=== PATIENT | female | born 2000 | race Caucasian/White ===

== ENCOUNTER 2021-01-24 06:35 | Inpatient (IN) ==
--- NOTE | 2021-01-24 06:46 | Emergency Department Note ---
Impression & Plan SIRS (systemic inflammatory response syndrome), Abdominal pain, Leukocytosis ED Provider Note NAME: ELADIA VEGA AGE: 20 SEX: F : 2000 ARRIVES VIA: Walk-In INFORMANT: Patient ED PROVIDER(S): Austen Mitchell DO CHIEF COMPLAINT: back pain and abdominal pain HPI: Patient is a 20-year-old female who presents to the ER for right lower back pain which started 6 days ago while she was doing a workout. Radiates into her right gluteus and down the back of her right leg and onto the right side of her belly. She feels very lightheaded when she gets up and moves around or get dizzy and vomited. Denies any dysuria, urgency, or frequency. Last menstrual p eriod was about 2 weeks ago. Pain is worse with movement i.e. twisting, turning, and bending. No cough or runny nose. No chest pain or shortness of breath. No other exacerbating or remitting factors. Over the past 3 4 hours she has had pain in the right lower quadrant. This been fairly consistent. She admits to nausea vomiting. She has not been eating or drinking. She is not sexually active and has not been sexually active before. Denies any vaginal bleeding or vaginal discharge. ROS: See above HPI for pertinent positives & negatives. A total of 10 systems r eviewed and were otherwise negative. PAST MEDICAL HISTORY:See Below PAST SURGICAL HISTORY:See Below FAMILY HISTORY:See Below SOCIAL HISTORY:See Below HOME MEDICATIONS:See Below ALLERGIES:See Below VITALS:See Below PHYSICAL EXAMINATION: GENERAL: Sitting up in bed, alert, well appearing, well nourished, no distress, non-toxic EYE EXAM: normal conjunctiva. PERRL and EOM's grossly intact. OROPHARYNX: no exudate, no erythema, lips, buccal mucosa, and tongue normal and mucous membranes are moist NECK: supple, no nuchal rigidity, no adenopathy, non-tender LUNGS: Clear to auscultation. Normal chest wall mechanics HEART: no murmurs, S1 normal and S2 normal ABDOMEN: abdomen soft, non-tender, normo-active bowel sounds, no masses, no rebound or guarding. BACK: Back is symmetrical on inspection and there is no deformity, no midline tenderness, no CVA tenderness. Tenderness over the right SI joint tracking to the right gluteus and down the back of the right leg UPPER EXTREMITIES: upper extremities are grossly normal. LOWER EXTREMITIES: Flexion and extension of the hips, knees, ankles, and EHL 5/5 bilaterally. Gross sensation is intact. DPs are 2/4 bilateral. Patellar and Achilles reflexes are 2/4 bilateral NEURO EXAM: Normal sensorium, cranial nerves II-XII grossly intact, normal speech, no gross weakness of arms, no gross weakness of legs. MEDICAL DECISION MAKING: Patient is a 20-year-old female that presents the ER with what appears to be reproducible back pain/muscle skeletal back pain combination with abdominal pain. IV was established blood work was obtained. She was mildly tachycardic. Labs show leukocytosis of 30,000. No significant anemia. BMP along with LFTs bilirubin and lipase was unremarkable. hCG was negative. UA was clean. Covid was ordered and pending. CT abdomen pelvis showed normal appendix but a moderate amount of free fluid in the pelvis and a left ovarian cyst. Patient is not sexually active. Doubt TOA. Did discuss with [facility] [facility] and Dr. Charmaine Issa was gracious enough to evaluate the patient at bedside. She does not believe that this is [employer] and favors likely intra-abdominal process other than [employer]. Discussed with general surgery who will [place] and they will evaluate the patient. She was given IV Zosyn. She given IV fluids and Toradol. Discussed with the hospitalist Dr. Kizzy Bryan for further evaluation as well. With the persi stent pain, leukocytosis and her current presentation with right lower quadrant abdominal pain do feel it is best at this time to observe her and have her evaluated by general surgery. Observation Status: Indication: abdominal pain Patient with no pertinent family history, was seen first at 0630 hrs and was necessary in order to determine medical stability and avoid unnecessary admission. Upon reevaluation, 6 hours of observation revealed that the patient should be admitted. Disposition date and time 01/24/2021 at 1300 Triage Nursing notes reviewed. Limited review of prior medical records performed Vital Signs: reviewed and remarkable for tachy Differential diagnosis: Differential diagnoses includes but is not limited to gastritis, peptic ulcer disease, GERD, gallbladder disease, pancreatitis, small bowel obstruction, acute coronary syndrome, pericarditis, ischemic bowel, irritable bowel disease, irri table bowel syndrome, appendicitis, diverticulitis, malignancy, hernia, urinary tract infection, torsion, /ectopic (if female), perforation, trauma, infectious. ER treatment provided: See below Diagnostics interpreted by me: ECG: none Cardiac Monitoring: An order was placed for continuous cardiac monitoring. The monitor shows a rate of 105 with sinus rhythm. Laboratory studies: As stated above and show below. Imaging studies: CT abdomen pelvis as discussed above Consultation(s): Patient was seen and evaluated by Dr. Sourav Issa from [employer] as stated above Discussed with Branden Segovia for further evaluation Discussed with Kizzy Bryan for admission Procedures: none Critical Care: None Past Med/Surg History Medical History (Updated 01/24/21 @ 12:54 by Austen Mitchell DO) No pertinent past medical history Surgical History S/P tonsillectomy and adenoidectomy S/P wisdom tooth extraction Family History Grandmother (Maternal) Breast cancer Denies family history of Ovarian cancer Colorectal cancer Uterine cancer Social History Smoking Status: Never smoker Hx Alcohol Use: No Hx Substance Use: No Preferred Language: Latvian Feels Safe at Home: Yes Allergies Allergies Allergy/AdvReac Type Severity Reaction Status Date / Time No Known Drug Allergies Allergy Uncoded 02/14/19 08:13 Home Meds Home Medications Medication Instructions Recorded Confirmed cetirizine 10 mg tablet 10 mg PO DAILY tab 12/03/18 01/24/21 fluticasone propionate 50 1 spray INTRANASAL DAILY gm 12/03/18 01/24/21 mcg/actuation nasal spray,suspension melatonin 5 mg capsule 5 mg PO DAILY 02/19/20 01/24/21 ibuprofen 600 mg tablet 600 mg PO Q6H PRN 01/24/21 01/24/21 multivitamin 1 tab PO DAILY 01/24/21 01/24/21 Results & Data (ED) Vital Signs Vital Signs - 24 hr 01/24/21 06:38 01/24/21 06:46 Temperature 36.8 C Temperature Source Temporal Artery Scan Pulse Rate 110 H Respiratory Rate 18 Respiratory Effort / Characteristics Non-Labored Spontaneous Respiratory Depth Normal Blood Pressure 103/53 L Blood Pressure Mean 69 Pulse Oximetry 99 99 Oxygen Delivery Method Room Air Room Air Sepsis New/Unexplained Change in Mental Status N/A Sepsis Action Taken by Nursing No Action Required Laboratory Data Result diagrams: 01/24/21 07:23 01/24/21 07:23 Lab Results 01/24/21 01/24/21 01/24/21 Range/Units 06:46 07:23 07:23 WBC 30.63 H* (4.8-10.8) K/uL RBC 4.19 L (4.2-5.4) M/uL Hgb 13.4 (12.0-16.0) g/dL Hct 38.4 (37-47) % MCV 91.6 (80-100) fL MCH 32.0 (25-34) pg MCHC 34.9 (32-36) g/dL RDW Std Deviation 42.4 (36.4-46.3) fL RDW Coeff of Татьяна 12.6 (11.5-14.5) % Plt Count 225 (130-400) K/uL MPV 11.2 H (7.4-10.4) fL Immature Gran % (Auto) 0.3 % Neut % (Auto) 91.9 % Lymph % (Auto) 2.6 % [place] % (Auto) 4.4 % Eos % (Auto) 0.7 % Baso % (Auto) 0.1 % Neut # (Auto) 28.14 H (1.4-6.5) K/uL Lymph # (Auto) 0.80 L (1.2-3.4) K/uL [place] # (Auto) 1.35 H (0.11-0.59) K/uL Eos # (Auto) 0.22 (0-0.5) K/uL Baso # (Auto) 0.03 (0-0.2) K/uL Immature Gran # (Auto) 0.09 H (0.00-0.02) K/uL Sodium 138 (136-145) mmol/L Potassium 4.0 (3.5-5.1) mmol/L Chloride 106 (98-107) mmol/L Carbon Dioxide 26 (21-32) mmol/L Anion Gap 6.0 (3-11) BUN 15 (7-18) mg/dl Creatinine 0.80 (0.6-1.2) mg/dl Est Cr Clr Drug Dosing 126.4 ml/min Est GFR ( Amer) 122.2 ml/min Est GFR (Non-Af Amer) 105.4 ml/min BUN/Creatinine Ratio 18.7 (10-20) Glucose 106 H (70-99) mg/dl Lactate (0.4-2.0) mmol/L Calcium 9.4 (8.5-10.1) mg/dl Total Bilirubin 1.0 (0.2-1) mg/dl AST 15 (15-37) U/L ALT 35 (12-78) U/L Alkaline Phosphatase 89 (45-117) U/L Total Protein 7.4 (6.4-8.2) gm/dl Albumin 3.5 (3.4-5.0) gm/dl Globulin 3.9 (2.5-4.0) gm/dl Albumin/Globulin Ratio 0.9 (0.9-2) Lipase 70 L (73-393) U/L HCG, Quant mIU/ml Urine Color Urine Appearance (Clear) Urine pH (4.5-7.5) Ur Specific [place] (1.000-1.030) Urine Protein (Negative) Urine Glucose (UA) (Negative) Urine Ketones (Negative) Urine Blood (Negative) Urine Nitrite (Negative) Urine Bilirubin (Negative) Urine Urobilinogen (Negative) Ur Leukocyte Esterase (Negative) POC Ur Test NEG (NEG) 01/24/21 01/24/21 01/24/21 Range/Units 07:23 08:04 10:25 WBC (4.8-10.8) K/uL RBC (4.2-5.4) M/uL Hgb (12.0-16.0) g/dL Hct (37-47) % MCV (80-100) fL MCH (25-34) pg MCHC (32-36) g/dL RDW Std Deviation (36.4-46.3) fL RDW Coeff of Татьяна (11.5-14.5) % Plt Count (130-400) K/uL MPV (7.4-10.4) fL Immature Gran % (Auto) % Neut % (Auto) % Lymph % (Auto) % [place] % (Auto) % Eos % (Auto) % Baso % (Auto) % Neut # (Auto) (1.4-6.5) K/uL Lymph # (Auto) (1.2-3.4) K/uL [place] # (Auto) (0.11-0.59) K/uL Eos # (Auto) (0-0.5) K/uL Baso # (Auto) (0-0.2) K/uL Immature Gran # (Auto) (0.00-0.02) K/uL Sodium (136-145) mmol/L Potassium (3.5-5.1) mmol/L Chloride (98-107) mmol/L Carbon Dioxide (21-32) mmol/L Anion Gap (3-11) BUN (7-18) mg/dl Creatinine (0.6-1.2) mg/dl Est Cr Clr Drug Dosing ml/min Est GFR ( Amer) ml/min Est GFR (Non-Af Amer) ml/min BUN/Creatinine Ratio (10-20) Glucose (70-99) mg/dl Lactate 1.5 (0.4-2.0) mmol/L Calcium (8.5-10.1) mg/dl Total Bilirubin (0.2-1) mg/dl AST (15-37) U/L ALT (12-78) U/L Alkaline Phosphatase (45-117) U/L Total Protein (6.4-8.2) gm/dl Albumin (3.4-5.0) gm/dl Globulin (2.5-4.0) gm/dl Albumin/Globulin Ratio (0.9-2) Lipase (73-393) U/L HCG, Quant < 1 mIU/ml Urine Color Yellow Urine Appearance Clear (Clear) Urine pH 5.5 (4.5-7.5) Ur Specific [place] 1.023 (1.000-1.030) Urine Protein Negative (Negative) Urine Glucose (UA) Negative (Negative) Urine Ketones Negative (Negative) Urine Blood Negative (Negative) Urine Nitrite Negative (Negative) Urine Bilirubin Negative (Negative) Urine Urobilinogen Negative (Negative) Ur Leukocyte Esterase Negative (Negative) POC Ur Test (NEG) Administered Medications Discontinued Medications Sodium Chloride (Nss 1000ml) 1,000 mls @ 999 mls/hr IV .Q1H1M ONE Stop: 01/24/21 08:03 Last Admin: 01/24/21 07:25 Dose: 999 mls/hr Documented by: [id number] Piperacillin Sod/Tazobactam Sod (Zosyn) 4.5 gm in 120 mls @ 240 mls/hr IV NOW ONE Stop: 01/24/21 09:47 Last Admin: 01/24/21 11:49 Dose: 240 mls/hr Documented by: [id number] Ioversol (Optiray 320 100ml) 95 ml IV ONCE ONE Stop: 01/24/21 08:36 Last Admin: 01/24/21 08:35 Dose: 95 ml Documented by: [id number] Ketorolac Tromethamine (Ketorolac Tromethamine 15 Mg/Ml Vial) 10 mg IV NOW ONE Stop: 01/24/21 07:04 Last Admin: 01/24/21 07:28 Dose: 10 mg Documented by: [id number] Methylprednisolone (Methylprednisolone 125 Mg/2 Ml Vial) 60 mg IV NOW STA Stop: 01/24/21 07:04 Last Admin: 01/24/21 07:28 Dose: 60 mg Documented by: [id number] Imaging Data Radiologist's Impression: Lumbar Spine X-Ray 01/24/21 07:05 XR lumbar spine 2-3V CLINICAL HISTORY: lower back pain COMPARISON STUDY: Lumbar spine CT January 24, 2021 at 8:29 AM. FINDINGS: Alignment of the lumbar spine is anatomic. There is mild disc space narrowing at L5-S1. No fractures lesion within the lumbar spine is noted. There is contrast within the collecting systems and bladder from recent contrast- enhanced CT. IMPRESSION: 1. No acute lumbar spine fracture or subluxation. 2. Mild disc space narrowing at L5-S1. ACT 112: Negative or not required by law. Electronically signed by: Hernan Ambriz M.D. 01/24/2021 9:46 AM Abdomen/Pelvis CT 01/24/21 08:17 CT abd pelvis IV con only CLINICAL HISTORY: Lower back pain COMPARISON STUDY: No previous studies for comparison. CT DOSE: 784.60 mGycm TECHNIQUE: Standard CT of the Abdomen and Pelvis was performed with IV contrast. A dose lowering technique was utilized adhering to the principles of ALARA. Contrast Volume: Optiray 320, 95 ml. The patient did not receive oral contrast. FINDINGS: Lung base: The lung bases are clear. Abdominal cavity: There is no evidence for abdominal mass, adenopathy or ascites. Liver: There is homogeneous attenuation of the liver parenchyma. There is no evidence for enhancing mass lesion. Spleen: There is homogeneous attenuation of the splenic parenchyma. There is no enhancing mass lesion. Pancreas: There is homogeneous attenuation of the pancreatic parenchyma. There is no evidence for mass lesion or peripancreatic fluid collection. Gall Bladder: The gallbladder is well distended with no evidence for intraluminal calculi, wall thickening or pericholecystic edema. Adrenal glands: The adrenal glands are normal in size and attenuation. There is no evidence for enhancing mass lesion. Kidneys: There is homogeneous attenuation of the renal parenchyma bilaterally. There is no evidence for renal calculus or hydronephrosis. There is no evidence for enhancing mass. Bowel: The bowel loops are normally placed within the abdomen and pelvis without evidence for dilatation or obstruction. There is no evidence for mass lesion. There are no inflammatory changes present. There is no evidence for free air. There is a normal appendix in the right lower quadrant. Bladder: The bladder is within normal limits with no evidence for focal mass, calculus or diverticulum. : There is prominence of the endometrium. There is a 2.5 cm left ovarian cyst and a 1.6 cm dominant follicle on the right. Small to moderate amount of free fluid is seen within the cul-de-sac which is most likely physiologic. Vasculature: There is no evidence for aneurysmal dilatation of the abdominal aorta. Osseous structures: There is no acute osseous pathology. IMPRESSION: 1. No acute intra-abdominal or pelvic abnormality. 2. Thickening of the endometrium and 2.5 cm left ovarian cyst. Small to moderate amount of free fluid seen within the cul-de-sac which is most likely physiologic from rupture of an ovarian cyst. ACT 112: Negative or not required by law. Electronically signed by: Oren Fraser M.D. 01/24/2021 8:[address] 01/24/21 08:17 CT lumbar spine w con CLINICAL HISTORY: Lower back pain. COMPARISON STUDY: No previous studies for comparison. TECHNIQUE: Axial images of the lumbar spine were obtained following intravenous injection of 95 cc of Optiray 320 IV. Sagittal and coronal reconstructions were viewed. Automated exposure control was utilized for the study. A dose lowering technique was utilized adhering to the principles of ALARA. FINDINGS: Please note that the CT of the abdomen and pelvis will be reported separately. For purposes of numbering on this exam, the L5-S1 disc space is assigned to axial image 193 of 245. Alignment of the lumbar spine is anatomic. Vertebral body heights are maintained. There is no lumbar spine fracture. No suspicious osseous lesion is present. Facet joints are intact. Paravertebral soft tissues are unremarkable. There is mild disc space narrowing at L5-S1. The central canal and neural foramen are suboptimally assessed by CT. L1-L2: The central canal and neural foramen are patent. L2-L3: The central canal and neural foramen are patent. L3-L4: There is a central disc herniation. This may have mild inferior subligamentous migration. This could reflect a central disc extrusion. There is mild narrowing of the central canal. Neural foramen are patent. L4-L5: There is mild disc bulge with possible superimposed small central disc protrusion. Central canal and neural foramen are patent. L5-S1: There is mild disc space narrowing. There is disc bulge with small superimposed central disc osteophyte complex. Central canal and neural foramen are patent. There may be mild narrowing of the bilateral lateral recesses. IMPRESSION: 1. No acute lumbar spine fracture or subluxation. 2. Suboptimal evaluation of the central canal and neural foramen given CT technique. Possible mild central canal stenosis at L3-L4 due to central disc herniation with mild inferior subligamentous migration. 3. Suspected disc bulge at L4-L5 with small superimposed central disc protrusion. 4. Small central disc osteophyte complex at L5-S1. ACT 112: Negative or not required by law. Electronically signed by: Hernan Ambriz M.D. 01/24/2021 8:52 AM Pelvis Ultrasound 01/24/21 09:16 US pelvic complete CLINICAL HISTORY: Right-sided flank and pelvic pain radiating down the right leg. TECHNIQUE: Transabdominal and endovaginal sonogram of the pelvis is performed. COMPARISON: CT of the abdomen and pelvis from 01/24/2021 FINDINGS: Uterus: The uterus is anteverted and normal in size. It measures 6.6 x 3.6 x 5.2 cm. Endometrial stripe: 8 mm with no endometrial fluid collection. Right ovary: The right ovary is normal in size and echogenicity. Anatomic Doppler flow is demonstrated. It measures 2.0 x 1.7 x 1.7 cm. There is no evidence for right adnexal mass or cyst. Left ovary: The left ovary is normal in size and echogenicity. Anatomic Doppler flow was demonstrated. There is a 1.8 x 1.6 cm ovarian cyst. The ovary itself measures approximately 2.0 x 1.6 x 1.5 cm. There is no evidence for left adnexal mass or cyst. Cul de sac: Small amount of free fluid is seen within the cul-de-sac. IMPRESSION: 1. As seen on the CT, there is a small right ovarian cyst measuring 1.8 cm by ultrasound. Small amount of free fluid is seen within the cul-de-sac which is most likely physiologic. ACT 112: Negative or not required by law. Electronically signed by: Oren Fraser M.D. 01/24/2021 10:33 AM Venous Doppler Study 01/24/21 09:26 RIGHT LOWER EXTREMITY VENOUS DOPPLER HISTORY: r leg pain COMPARISON STUDY: None. FINDINGS: There is normal compressibility, flow, and augmentation within the right lower extremity deep venous system. IMPRESSION: No DVT within the right lower extremity ACT 112: Negative or not required by law. Electronically signed by: Kirk Jules M.D. 01/24/2021 10:35 AM Discharge Plan Visit Data Chief Complaint: Back Injury/Pain Stated Complaint: BACK PAIN, VOMITING ED Provider: Austen Mitchell Discharge Problem: SIRS (systemic inflammatory response syndrome), Abdominal pain, Leukocytosis Forms Stand Alone Forms: [employer] Prescriptions Prescriptions: No Action fluticasone propionate 50 mcg/actuation spray,suspension 1 spray intranasal DAILY RF: 0 cetirizine 10 mg tablet 10 mg PO DAILY RF: 0 melatonin 5 mg capsule 5 mg PO DAILY RF: 0 multivitamin Tablet 1 tab PO DAILY RF: 0 ibuprofen 600 mg tablet 600 mg PO Q6H PRN (Reason: Pain) RF: 0 Referrals Referrals: Tyra Barragan DO [Primary Care Provider] - Discharge Problem: Abdominal pain Qualifiers: Abdominal location: unspecified location Qualified Code(s): R10.9 - Unspecified abdominal pain Leukocytosis Qualifiers: Leukocytosis type: unspecified Qualified Code(s): D72.829 - Elevated white blood cell count, unspecified
[2021-01-24] MEDS ORDERED: methylPREDNISolone 125 MG/2 ML VIAL IV STA (07:03)
[2021-01-24] MEDS ORDERED: SODIUM CHLORIDE 0.9% 1000ML 1,000 ML IV ONE (07:03)
[2021-01-24] MEDS ORDERED: KETOROLAC TROMETHAMINE 15 MG/ML VIAL IV ONE ×2 (07:03→19:23)
[2021-01-24 07:56] LABS: Albumin Level 3.5 gm/dl (3.4-5.0); BUN Creatinine Ratio 18.7 (10-20); Calcium 9.4 mg/dl (8.5-10.1); Creatinine Clr Calc Pharmacy 126.4 ml/min; Est GFR (African American) 122.2 ml/min; Est GFR (Non-African American) 105.4 ml/min
[2021-01-24 07:58] LABS: Albumin Globulin Ratio 0.9 (0.9-2); Globulin 3.9 gm/dl (2.5-4.0); Total Protein 7.4 gm/dl (6.4-8.2)
[2021-01-24 08:10] LABS: Hematocrit (blood only) 38.4 % (37-47); Hemoglobin 13.4 g/dL (12.0-16.0); Mean Corpuscular Hgb Conc 34.9 g/dL (32-36); Mean Corpuscular Volume 91.6 fL (80-100); Mean Platelet Volume 11.2 fL (7.4-10.4); Platelet Count 225 K/uL (130-400); RDW Coefficient of Variation 12.6 % (11.5-14.5); RDW Standard Deviation 42.4 fL (36.4-46.3); Red Blood Count 4.19 M/uL (4.2-5.4); White Blood Count 30.63 K/uL (4.8-10.8)
[2021-01-24 08:11] LABS: Basophils # (auto) 0.03 K/uL (0-0.2); Basophils % (auto) 0.1 %; Eosinophils # (auto) 0.22 K/uL (0-0.5); Eosinophils % (auto) 0.7 %; Immature Granulocytes # (auto) 0.09 K/uL (0.00-0.02); Immature Granulocytes % (auto) 0.3 %; Lymphocytes % (auto) 2.6 %; Monocytes # (auto) 1.35 K/uL (0.11-0.59); Monocytes % (auto) 4.4 %; Neutrophils # (auto) 28.14 K/uL (1.4-6.5); Neutrophils % (auto) 91.9 %
[2021-01-24 08:24] LABS: Appearance Urine Clear (Clear); Bilirubin Urine Negative (Negative); Blood Urine Negative (Negative); Color Urine Yellow; Glucose Urine UA Negative (Negative); Ketones Urine Negative (Negative); Leukocyte Esterase Urine Negative (Negative); Nitrite Urine Negative (Negative); Protein Urine Negative (Negative); Specific Gravity Urine 1.023 (1.000-1.030); Urobilinogen Urine Negative (Negative); pH Urine 5.5 (4.5-7.5)
[2021-01-24] MEDS ORDERED: OPTIRAY 320 100ml IV ONE (08:35)
--- NOTE | 2021-01-24 08:48 | CT Scan Report ---
CT abd pelvis IV con only CLINICAL HISTORY: Lower back pain COMPARISON STUDY: No previous studies for comparison. CT DOSE: 784.60 mGycm TECHNIQUE: Standard CT of the Abdomen and Pelvis was performed with IV contrast. A dose lowering mireya hnique was utilized adhering to the principles of ALARA. Contrast Volume: Optiray 320, 95 ml. The patient did not receive oral contrast. FINDINGS: Lung base: The lung bases are clear. Abdominal cavity: There is no evidence for abdominal mass, adenopathy or ascites. Liver: There is homogeneous attenuation of the liver parenchyma. There is no evidence for enhancing m ass lesion. Spleen: There is homogeneous attenuation of the splenic parenchyma. There is no enhancing mass lesion . Pancreas: There is homogeneous attenuation of the pancreatic parenchyma. There is no evidence for mas s lesion or peripancreatic fluid collection. Gall Bladder: The gallbladder is well distended with no evidence for intraluminal calculi, wall thick ening or pericholecystic edema. Adrenal glands: The adrenal glands are normal in size and attenuation. There is no evidence for enhan cing mass lesion. Kidneys: There is homogeneous attenuation of the renal parenchyma bilaterally. There is no evidence f or renal calculus or hydronephrosis. There is no evidence for enhancing mass. Bowel: The bowel loops are normally placed within the abdomen and pelvis without evidence for dilatat ion or obstruction. There is no evidence for mass lesion. There are no inflammatory changes present. There is no evidence for free air. There is a normal appendix in the right lower quadrant. Bladder: The bladder is within normal limits with no evidence for focal mass, calculus or diverticulu m. : There is prominence of the endometrium. There is a 2.5 cm left ovarian cyst and a 1.6 cm dominant follicle on the right. Small to moderate amount of free fluid is seen within the cul-de-sac which is most likely physiologic. Vasculature: There is no evidence for aneurysmal dilatation of the abdominal aorta. Osseous structures: There is no acute osseous pathology. IMPRESSION: 1. No acute intra-abdominal or pelvic abnormality. 2. Thickening of the endometrium and 2.5 cm left ovarian cyst. Small to moderate amount of free fluid seen within the cul-de-sac which is most likely physiologic from rupture of an ovarian cyst. ACT 112: Negative or not required by law. Electronically signed by: Oren Fraser M.D. 01/24/2021 8:46 AM
--- NOTE | 2021-01-24 08:54 | CT Scan Report ---
CT lumbar spine w con CLINICAL HISTORY: Lower back pain. COMPARISON STUDY: No previous studies for comparison. TECHNIQUE: Axial images of the lumbar spine were obtained following intravenous injection of 95 cc of Optiray 320 IV. Sagittal and coronal reconstructions were viewed. Automated exposure control was uti lized for the study. A dose lowering technique was utilized adhering to the principles of ALARA. FINDINGS: Please note that the CT of the abdomen and pelvis will be reported separately. For purposes of numbering on this exam, the L5-S1 disc space is assigned to axial image 193 of 245. Alignment of the lumbar spine is anatomic. Vertebral body heights are maintained. There is no lumbar spine fractur e. No suspicious osseous lesion is present. Facet joints are intact. Paravertebral soft tissues are u nremarkable. There is mild disc space narrowing at L5-S1. The central canal and neural foramen are brown boptimally assessed by CT. L1-L2: The central canal and neural foramen are patent. L2-L3: The central canal and neural foramen are patent. L3-L4: There is a central disc herniation. This may have mild inferior subligamentous migration. This could reflect a central disc extrusion. There is mild narrowing of the central canal. Neural foramen are patent. L4-L5: There is mild disc bulge with possible superimposed small central disc protrusion. Central can al and neural foramen are patent. L5-S1: There is mild disc space narrowing. There is disc bulge with small superimposed central disc o steophyte complex. Central canal and neural foramen are patent. There may be mild narrowing of the bi lateral lateral recesses. IMPRESSION: 1. No acute lumbar spine fracture or subluxation. 2. Suboptimal evaluation of the central canal and neural foramen given CT technique. Possible mild ce ntral canal stenosis at L3-L4 due to central disc herniation with mild inferior subligamentous migrat ion. 3. Suspected disc bulge at L4-L5 with small superimposed central disc protrusion. 4. Small central disc osteophyte complex at L5-S1. ACT 112: Negative or not required by law. Electronically signed by: Hernan Ambriz M.D. 01/24/2021 8:52 AM
[2021-01-24] MEDS ORDERED: PIPERACILLIN/TAZOBACTAM 4.5 GM/120 ML BAG IV ONE (09:18)
[2021-01-24] MEDS ORDERED: PIPERACILL/TAZOBAC CONSULT ACTIVE PRN (09:18)
--- NOTE | 2021-01-24 09:48 | XRay Report ---
XR lumbar spine 2-3V CLINICAL HISTORY: lower back pain COMPARISON STUDY: Lumbar spine CT January 24, 2021 at 8:29 AM. FINDINGS: Alignment of the lumbar spine is anatomic. There is mild disc space narrowing at L5-S1. No fractures lesion within the lumbar spine is noted. There is contrast within the collecting systems an d bladder from recent contrast-enhanced CT. IMPRESSION: 1. No acute lumbar spine fracture or subluxation. 2. Mild disc space narrowing at L5-S1. ACT 112: Negative or not required by law. Electronically signed by: Hernan Ambriz M.D. 01/24/2021 9:46 AM
--- NOTE | 2021-01-24 10:35 | Ultrasound Report ---
US pelvic complete CLINICAL HISTORY: Right-sided flank and pelvic pain radiating down the right leg. TECHNIQUE: Transabdominal and endovaginal sonogram of the pelvis is performed. COMPARISON: CT of the abdomen and pelvis from 01/24/2021 FINDINGS: Uterus: The uterus is anteverted and normal in size. It measures 6.6 x 3.6 x 5.2 cm. Endometrial stripe: 8 mm with no endometrial fluid collection. Right ovary: The right ovary is normal in size and echogenicity. Anatomic Doppler flow is demonstrat ed. It measures 2.0 x 1.7 x 1.7 cm. There is no evidence for right adnexal mass or cyst. Left ovary: The left ovary is normal in size and echogenicity. Anatomic Doppler flow was demonstrate d. There is a 1.8 x 1.6 cm ovarian cyst. The ovary itself measures approximately 2.0 x 1.6 x 1.5 cm. There is no evidence for left adnexal mass or cyst. Cul de sac: Small amount of free fluid is seen within the cul-de-sac. IMPRESSION: 1. As seen on the CT, there is a small right ovarian cyst measuring 1.8 cm by ultrasound. Small amount of free fluid is seen within the cul-de-sac which is most likely physiologic. ACT 112: Negative or not required by law. Electronically signed by: Oren Fraser M.D. 01/24/2021 10:33 AM
--- NOTE | 2021-01-24 10:36 | Ultrasound Report ---
RIGHT LOWER EXTREMITY VENOUS DOPPLER HISTORY: r leg pain COMPARISON STUDY: None. FINDINGS: There is normal compressibility, flow, and augmentation within the right lower extremity de ep venous system. IMPRESSION: No DVT within the right lower extremity ACT 112: Negative or not required by law. Electronically signed by: Kirk Jules M.D. 01/24/2021 10:35 AM
[2021-01-24] MEDS ORDERED: LORazepam 0.5 MG/1 ML VIAL IV PRN (12:52)
--- NOTE | 2021-01-24 13:04 | History & Physical Report ---
Date of Service January 24, 2021 Assessment & Plan (1) SIRS (systemic inflammatory response syndrome): Plan: Presents with right lower back pain with pain radiating around to the right lower abdomen and down the right thigh to the right medial calf With tachycardia, leukocytosis significant at 30 with neutrophilia, but afebrile, lactate negative, normal blood pressure Presented with nausea/vomiting likely secondary to severe pain No source of infection found on CT abdomen/pelvis, urinalysis is negative, no hydronephrosis or pyelonephritis Pelvic ultrasound without source of infection and seen by gynecology Suspect this is likely due to herniated lumbar disc with acute radiculopathy at the L3-L4 level, but need to observe and follow Symptoms are improving with treatment of pain and IV fluids, but was also given 1 dose of IV Zosyn and 1 dose of IV Solu-Medrol -Admit to medical/surgical floor -Follow blood cultures and watch for fevers -Surgery consulted by ER physician-awaiting consultation but do not suspect acute abdomen or appendicitis based on imaging and examination -Check MRI lumbar spine -Follow CBC, CMP in the morning-cautioned that may still have leukocytosis given that she had IV Solu-Medrol in the ER, however most likely will be not higher than it is today simply from steroids alone -Pain control with IV Toradol, hold off on any further steroids at this time -No need for antibiotics at this time is unclear source or even if there is an infection (2) Herniated lumbar intervertebral disc: Plan: As above Check MRI lumbar spine Lorazepam as needed for claustrophobia Treating with IV Toradol We will see how her symptoms progress/improve overnight (3) Abdominal pain: Plan: As above (4) Leukocytosis: Plan: As above Follow CBC in the morning Plan: DVT prophylaxis-SCDs Disposition-admit to medical/surgical floor Discussed her care with her mother at the bedside History of Present Illness Chief Complaint: Back pain, abdominal pain, nausea/vomiting Primary Care Provider: Tyra Barragan DO This patient is a 20-year-old healthy female who presents to the ER with right lower back pain x6 days and then woke up this morning with development of pain radiating around from the right flank to the right lower quadrant and down the right lower extremity. She reports she did a hard abdominal workout about a week ago and the pain in the right lower back started after that. It was worse with certain movements and twisting and certainly seemed musculoskeletal to her. She also had abdominal pains only with sneezing coughing or using her abdominal muscles. She woke up this morning, however, and noted fairly severe pain radiating around as noted above into the abdomen and down the right lower extremity that was worse when she tried to get up and walk around. She felt very lightheaded like she was about to pass out and then started having nausea and vomiting. Her roommate had to put her in her desk chair on wheels and wheeled her to the door to get her to the car to come to the hospital. The pain radiates through her right buttock down the right medial thigh to the right medial calf and feels like a charley horse in nature. She does not necessarily feel any numbness in that area. She also had some tenderness in the right lower quadrant and initially there was concerns for appendicitis as her WBC count was quite high at 30 on arrival. She denies any fevers or chills, no recent illness. After being treated in the ER with IV Toradol, 1 L of normal saline, 1 dose of Zosyn, and 1 dose of Solu-Medrol 60 mg, she is definitely feeling better and her nausea is gone. In fact, she is feeling hungry. She was afebrile in the ER, tachycardic, with a normal blood pressure. Other than the elevated WBC count, her lactate was normal, CMP was normal, the rest of her CBC was normal, lipase is normal, and urinalysis completely normal. Covid test was pending at the time of admission. Gonorrhea and Chlamydia urine test were collected and pending also, however the patient is not sexually acti ve. hCG test was negative. She was seen by NEIGHBORHOOD COORDINATOR and had a pelvic ultrasound which showed some normal ovarian follicles and gynecology was not concerned for any NEIGHBORHOOD COORDINATOR infection. A CT of the abdomen/pelvis with IV contrast was normal except for ovarian cyst/follicles and a small to moderate amount of free fluid in the cul-de-sac most likely physiologic. A CT of the lumbar spine does show mild central canal stenosis at L3-L4 due to central disc herniation with mild inferior subligamentous migration and suspected disc bulge at L4-L5 with small superimposed central disc protrusion. A venous Doppler of the right lower extremity was negative for DVT She will be admitted for right lower back pain with right lower quadrant abdominal pain radiating down the right lower extremity, SIRS criteria. Ho wever, it seems most likely this is an acute lumbar radiculopathy. Allergies Allergy/AdvReac Type Severity Reaction Status Date / Time No Known Drug Allergies Allergy Uncoded 02/14/19 08:13 Home Medications Medication Instructions Recorded Confirmed Type cetirizine 10 mg tablet 10 mg PO DAILY tab 12/03/18 01/24/21 History fluticasone propionate 50 1 spray INTRANASAL DAILY gm 12/03/18 01/24/21 History mcg/actuation nasal spray,suspension melatonin 5 mg capsule 5 mg PO DAILY 02/19/20 01/24/21 History ibuprofen 600 mg tablet 600 mg PO Q6H PRN 01/24/21 01/24/21 History multivitamin 1 tab PO DAILY 01/24/21 01/24/21 History Past Med/Surg History Medical History Menstrual migraine No pertinent past medical history Surgical History S/P tonsillectomy and adenoidectomy S/P wisdom tooth extraction Family History Grandmother (Maternal) Breast cancer Father Nephrolithiasis Grandfather (Paternal) Nephrolithiasis Denies family history of Ovarian cancer Colorectal cancer Uterine cancer Social History Smoking Status: Never smoker Hx Alcohol Use: No Hx Substance Use: No Preferred Language: [place] Feels Safe at Home: Yes Review of Systems Review of Systems: All systems reviewed & are unremarkable except as noted in HPI & below Denies headache, no fevers or chills, positive nausea/vomiting as per HPI, no constipation or diarrhea, last bowel movement 1 day ago No urinary symptoms or blood in the urine, no abnormal menstrual cycles No rashes or joint pains Physical Exam Constitutional: WD/WN, vitals as above Eyes: PERRL, conjunctivae normal, anicteric sclerae ENMT: external ear and nose normal, oropharynx normal Neck: trachea midline, no thyromegaly Respiratory: normal respiratory effort, lungs clear to auscultation Cardiovascular: RRR, no murmur, no edema Chest (Breasts): Chest: normal inspection of chest Gastrointestinal (Abdomen): Inspection/Auscultation: abdomen normal to inspection and normal bowel sounds; abdomen not distended Percussion/Palpation: + abdomen tender (Very minimal without guarding or rebound in the right lower quadrant) and abdomen soft; no guarding, abdomen not rigid, no hepatosplenomegaly, no hernia, no abdominal mass and no ascites No pain with heel tap Musculoskeletal: Extremities: extremities normal to inspection; no cyanosis and no clubbing Positive tenderness palpation over right lumbar paraspinous muscles, no mass palpated, no ecchymosis Skin: no rashes, warm and dry Neurologic: deep tendon reflexes 2+ bilaterally (Brisk reflexes in patellar and Achilles bilaterally), moves all extremities and awake; no focal motor deficits (Except 4+/5 strength in right hip flexion and knee flexion and extension) Motor/Sensory: no sensory deficit (Intact to light touch throughout lower extremities bilaterally) Positive straight leg raise on the right, negative on the left Psychiatric: A+Ox3, euthymic affect Lymphatic: no lymphedema Results & Data Results & Data ([facility]) Vital Signs (Past 12 Hours) Vital Signs Temp Pulse Resp BP Pulse Ox 01/24/21 06:46 99 01/24/21 06:38 36.8 C 110 H 18 103/53 L 99 Laboratory Results 01/24/21 01/24/21 01/24/21 Range/Units 12:12 10:25 08:04 WBC (4.8-10.8) K/uL RBC (4.2-5.4) M/uL Hgb (12.0-16.0) g/dL Hct (37-47) % MCV (80-100) fL MCH (25-34) pg MCHC (32-36) g/dL RDW Std Deviation (36.4-46.3) fL RDW Coeff of Татьяна (11.5-14.5) % Plt Count (130-400) K/uL MPV (7.4-10.4) fL Immature Gran % (Auto) % Neut % (Auto) % Lymph % (Auto) % Upson % (Auto) % Eos % (Auto) % Baso % (Auto) % Neut # (Auto) (1.4-6.5) K/uL Lymph # (Auto) (1.2-3.4) K/uL Upson # (Auto) (0.11-0.59) K/uL Eos # (Auto) (0-0.5) K/uL Baso # (Auto) (0-0.2) K/uL Immature Gran # (Auto) (0.00-0.02) K/uL Sodium (136-145) mmol/L Potassium (3.5-5.1) mmol/L Chloride (98-107) mmol/L Carbon Dioxide (21-32) mmol/L Anion Gap (3-11) BUN (7-18) mg/dl Creatinine (0.6-1.2) mg/dl Est Cr Clr Drug Dosing ml/min Est GFR ( Amer) ml/min Est GFR (Non-Af Amer) ml/min BUN/Creatinine Ratio (10-20) Glucose (70-99) mg/dl Lactate 1.5 (0.4-2.0) mmol/L Calcium (8.5-10.1) mg/dl Total Bilirubin (0.2-1) mg/dl AST (15-37) U/L ALT (12-78) U/L Alkaline Phosphatase (45-117) U/L Total Protein (6.4-8.2) gm/dl Albumin (3.4-5.0) gm/dl Globulin (2.5-4.0) gm/dl Albumin/Globulin Ratio (0.9-2) Lipase (73-393) U/L HCG, Quant mIU/ml Urine Color Urine Appearance (Clear) Urine pH (4.5-7.5) Ur Specific [place] (1.000-1.030) Urine Protein (Negative) Urine Glucose (UA) (Negative) Urine Ketones (Negative) Urine Blood (Negative) Urine Nitrite (Negative) Urine Bilirubin (Negative) Urine Urobilinogen (Negative) Ur Leukocyte Esterase (Negative) POC Ur Test (NEG) C.trachomatis RNA Pending SARS-CoV-2 (PCR) Pending N.gonorrhoeae RNA Pending 01/24/21 01/24/21 01/24/21 Range/Units 08:04 07:23 07:23 WBC (4.8-10.8) K/uL RBC (4.2-5.4) M/uL Hgb (12.0-16.0) g/dL Hct (37-47) % MCV (80-100) fL MCH (25-34) pg MCHC (32-36) g/dL RDW Std Deviation (36.4-46.3) fL RDW Coeff of Татьяна (11.5-14.5) % Plt Count (130-400) K/uL MPV (7.4-10.4) fL Immature Gran % (Auto) % Neut % (Auto) % Lymph % (Auto) % Upson % (Auto) % Eos % (Auto) % Baso % (Auto) % Neut # (Auto) (1.4-6.5) K/uL Lymph # (Auto) (1.2-3.4) K/uL [place]pson # (Auto) (0.11-0.59) K/uL Eos # (Auto) (0-0.5) K/uL Baso # (Auto) (0-0.2) K/uL Immature Gran # (Auto) (0.00-0.02) K/uL Sodium 138 (136-145) mmol/L Potassium 4.0 (3.5-5.1) mmol/L Chloride 106 (98-107) mmol/L Carbon Dioxide 26 (21-32) mmol/L Anion Gap 6.0 (3-11) BUN 15 (7-18) mg/dl Creatinine 0.80 (0.6-1.2) mg/dl Est Cr Clr Drug Dosing 126.4 ml/min Est GFR ( Amer) 122.2 ml/min Est GFR (Non-Af Amer) 105.4 ml/min BUN/Creatinine Ratio 18.7 (10-20) Glucose 106 H (70-99) mg/dl Lactate (0.4-2.0) mmol/L Calcium 9.4 (8.5-10.1) mg/dl Total Bilirubin 1.0 (0.2-1) mg/dl AST 15 (15-37) U/L ALT 35 (12-78) U/L Alkaline Phosphatase 89 (45-117) U/L Total Protein 7.4 (6.4-8.2) gm/dl Albumin 3.5 (3.4-5.0) gm/dl Globulin 3.9 (2.5-4.0) gm/dl Albumin/Globulin Ratio 0.9 (0.9-2) Lipase 70 L (73-393) U/L HCG, Quant < 1 mIU/ml Urine Color Yellow Urine Appearance Clear (Clear) Urine pH 5.5 (4.5-7.5) Ur Specific [place] 1.023 (1.000-1.030) Urine Protein Negative (Negative) Urine Glucose (UA) Negative (Negative) Urine Ketones Negative (Negative) Urine Blood Negative (Negative) Urine Nitrite Negative (Negative) Urine Bilirubin Negative (Negative) Urine Urobilinogen Negative (Negative) Ur Leukocyte Esterase Negative (Negative) POC Ur Test (NEG) C.trachomatis RNA SARS-CoV-2 (PCR) N.gonorrhoeae RNA 01/24/21 01/24/21 Range/Units 07:23 06:46 WBC 30.63 H* (4.8-10.8) K/uL RBC 4.19 L (4.2-5.4) M/uL Hgb 13.4 (12.0-16.0) g/dL Hct 38.4 (37-47) % MCV 91.6 (80-100) fL MCH 32.0 (25-34) pg MCHC 34.9 (32-36) g/dL RDW Std Deviation 42.4 (36.4-46.3) fL RDW Coeff of Татьяна 12.6 (11.5-14.5) % Plt Count 225 (130-400) K/uL MPV 11.2 H (7.4-10.4) fL Immature Gran % (Auto) 0.3 % Neut % (Auto) 91.9 % Lymph % (Auto) 2.6 % Upson % (Auto) 4.4 % Eos % (Auto) 0.7 % Baso % (Auto) 0.1 % Neut # (Auto) 28.14 H (1.4-6.5) K/uL Lymph # (Auto) 0.80 L (1.2-3.4) K/uL [place] # (Auto) 1.35 H (0.11-0.59) K/uL Eos # (Auto) 0.22 (0-0.5) K/uL Baso # (Auto) 0.03 (0-0.2) K/uL Immature Gran # (Auto) 0.09 H (0.00-0.02) K/uL Sodium (136-145) mmol/L Potassium (3.5-5.1) mmol/L Chloride (98-107) mmol/L Carbon Dioxide (21-32) mmol/L Anion Gap (3-11) BUN (7-18) mg/dl Creatinine (0.6-1.2) mg/dl Est Cr Clr Drug Dosing ml/min Est GFR ( Amer) ml/min Est GFR (Non-Af Amer) ml/min BUN/Creatinine Ratio (10-20) Glucose (70-99) mg/dl Lactate (0.4-2.0) mmol/L Calcium (8.5-10.1) mg/dl Total Bilirubin (0.2-1) mg/dl AST (15-37) U/L ALT (12-78) U/L Alkaline Phosphatase (45-117) U/L Total Protein (6.4-8.2) gm/dl Albumin (3.4-5.0) gm/dl Globulin (2.5-4.0) gm/dl Albumin/Globulin Ratio (0.9-2) Lipase (73-393) U/L HCG, Quant mIU/ml Urine Color Urine Appearance (Clear) Urine pH (4.5-7.5) Ur Specific [place] (1.000-1.030) Urine Protein (Negative) Urine Glucose (UA) (Negative) Urine Ketones (Negative) Urine Blood (Negative) Urine Nitrite (Negative) Urine Bilirubin (Negative) Urine Urobilinogen (Negative) Ur Leukocyte Esterase (Negative) POC Ur Test NEG (NEG) C.trachomatis RNA SARS-CoV-2 (PCR) N.gonorrhoeae RNA Diagnostic Findings Lumbar Spine X-Ray 01/24/21 07:05 XR lumbar spine 2-3V CLINICAL HISTORY: lower back pain COMPARISON STUDY: Lumbar spine CT January 24, 2021 at 8:29 AM. FINDINGS: Alignment of the lumbar spine is anatomic. There is mild disc space narrowing at L5-S1. No fractures lesion within the lumbar spine is noted. There is contrast within the collecting systems and bladder from recent contrast- enhanced CT. IMPRESSION: 1. No acute lumbar spine fracture or subluxation. 2. Mild disc space narrowing at L5-S1. ACT 112: Negative or not required by law. Electronically signed by: Hernan Ambriz M.D. 01/24/2021 9:46 AM Abdomen/Pelvis CT 01/24/21 08:17 CT abd pelvis IV con only CLINICAL HISTORY: Lower back pain COMPARISON STUDY: No previous studies for comparison. CT DOSE: 784.60 mGycm TECHNIQUE: Standard CT of the Abdomen and Pelvis was performed with IV contrast. A dose lowering technique was utilized adhering to the principles of ALARA. Contrast Volume: Optiray 320, 95 ml. The patient did not receive oral contrast. FINDINGS: Lung base: The lung bases are clear. Abdominal cavity: There is no evidence for abdominal mass, adenopathy or ascites. Liver: There is homogeneous attenuation of the liver parenchyma. There is no evidence for enhancing mass lesion. Spleen: There is homogeneous attenuation of the splenic parenchyma. There is no enhancing mass lesion. Pancreas: There is homogeneous attenuation of the pancreatic parenchyma. There is no evidence for mass lesion or peripancreatic fluid collection. Gall Bladder: The gallbladder is well distended with no evidence for intraluminal calculi, wall thickening or pericholecystic edema. Adrenal glands: The adrenal glands are normal in size and attenuation. There is no evidence for enhancing mass lesion. Kidneys: There is homogeneous attenuation of the renal parenchyma bilaterally. There is no evidence for renal calculus or hydronephrosis. There is no evidence for enhancing mass. Bowel: The bowel loops are normally placed within the abdomen and pelvis without evidence for dilatation or obstruction. There is no evidence for mass lesion. There are no inflammatory changes present. There is no evidence for free air. There is a normal appendix in the right lower quadrant. Bladder: The bladder is within normal limits with no evidence for focal mass, calculus or diverticulum. : There is prominence of the endometrium. There is a 2.5 cm left ovarian cyst and a 1.6 cm dominant follicle on the right. Small to moderate amount of free fluid is seen within the cul-de-sac which is most likely physiologic. Vasculature: There is no evidence for aneurysmal dilatation of the abdominal aorta. Osseous structures: There is no acute osseous pathology. IMPRESSION: 1. No acute intra-abdominal or pelvic abnormality. 2. Thickening of the endometrium and 2.5 cm left ovarian cyst. Small to moderate amount of free fluid seen within the cul-de-sac which is most likely physiologic from rupture of an ovarian cyst. ACT 112: Negative or not required by law. Electronically signed by: Oren Fraser M.D. 01/24/2021 8:[address] 01/24/21 08:17 CT lumbar spine w con CLINICAL HISTORY: Lower back pain. COMPARISON STUDY: No previous studies for comparison. TECHNIQUE: Axial images of the lumbar spine were obtained following intravenous injection of 95 cc of Optiray 320 IV. Sagittal and coronal reconstructions were viewed. Automated exposure control was utilized for the study. A dose lowering technique was utilized adhering to the principles of ALARA. FINDINGS: Please note that the CT of the abdomen and pelvis will be reported separately. For purposes of numbering on this exam, the L5-S1 disc space is assigned to axial image 193 of 245. Alignment of the lumbar spine is anatomic. Vertebral body heights are maintained. There is no lumbar spine fracture. No suspicious osseous lesion is present. Facet joints are intact. Paravertebral soft tissues are unremarkable. There is mild disc space narrowing at L5-S1. The central canal and neural foramen are suboptimally assessed by CT. L1-L2: The central canal and neural foramen are patent. L2-L3: The central canal and neural foramen are patent. L3-L4: There is a central disc herniation. This may have mild inferior subligamentous migration. This could reflect a central disc extrusion. There is mild narrowing of the central canal. Neural foramen are patent. L4-L5: There is mild disc bulge with possible superimposed small central disc protrusion. Central canal and neural foramen are patent. L5-S1: There is mild disc space narrowing. There is disc bulge with small superimposed central disc osteophyte complex. Central canal and neural foramen are patent. There may be mild narrowing of the bilateral lateral recesses. IMPRESSION: 1. No acute lumbar spine fracture or subluxation. 2. Suboptimal evaluation of the central canal and neural foramen given CT technique. Possible mild central canal stenosis at L3-L4 due to central disc herniation with mild inferior subligamentous migration. 3. Suspected disc bulge at L4-L5 with small superimposed central disc protrusion. 4. Small central disc osteophyte complex at L5-S1. ACT 112: Negative or not required by law. Electronically signed by: Hernan Ambriz M.D. 01/24/2021 8:52 AM Pelvis Ultrasound 01/24/21 09:16 US pelvic complete CLINICAL HISTORY: Right-sided flank and pelvic pain radiating down the right leg. TECHNIQUE: Transabdominal and endovaginal sonogram of the pelvis is performed. COMPARISON: CT of the abdomen and pelvis from 01/24/2021 FINDINGS: Uterus: The uterus is anteverted and normal in size. It measures 6.6 x 3.6 x 5.2 cm. Endometrial stripe: 8 mm with no endometrial fluid collection. Right ovary: The right ovary is normal in size and echogenicity. Anatomic Doppler flow is demonstrated. It measures 2.0 x 1.7 x 1.7 cm. There is no evidence for right adnexal mass or cyst. Left ovary: The left ovary is normal in size and echogenicity. Anatomic Doppler flow was demonstrated. There is a 1.8 x 1.6 cm ovarian cyst. The ovary itself measures approximately 2.0 x 1.6 x 1.5 cm. There is no evidence for left adnexal mass or cyst. Cul de sac: Small amount of free fluid is seen within the cul-de-sac. IMPRESSION: 1. As seen on the CT, there is a small right ovarian cyst measuring 1.8 cm by ultrasound. Small amount of free fluid is seen within the cul-de-sac which is most likely physiologic. ACT 112: Negative or not required by law. Electronically signed by: Oren Fraser M.D. 01/24/2021 10:33 AM Venous Doppler Study 01/24/21 09:26 RIGHT LOWER EXTREMITY VENOUS DOPPLER HISTORY: r leg pain COMPARISON STUDY: None. FINDINGS: There is normal compressibility, flow, and augmentation within the right lower extremity deep venous system. IMPRESSION: No DVT within the right lower extremity ACT 112: Negative or not required by law. Electronically signed by: Kirk Jules M.D. 01/24/2021 10:35 AM Code Status & VTE Plan Code Status Full code VTE Prophylaxis Plan VTE Prophylaxis will be ordered: Yes PG Care Time/CCT Total # of Minutes Spent Total Time Spent with Patient: Total time spent is greater than 50% in coordination of care (as documented) at patient's floor/unit and/or counseling patient: Coding Level of Care Code 41516 Initial Inpt Care Lvl 3 Diagnoses Leukocytosis D72.829 Leukocytosis type: unspecified Abdominal pain R10.9 Abdominal location: unspecified location SIRS (systemic inflammatory response syndrome) R65.10 Herniated lumbar intervertebral disc M51.26 (1) Leukocytosis Leukocytosis type: unspecified Qualified Code(s): D72.829 - Elevated white blood cell count, unspecified (2) Abdominal pain Abdominal location: unspecified location Qualified Code(s): R10.9 - Unspecified abdominal pain
--- NOTE | 2021-01-24 13:07 | OB/GYN Consultation ---
Date of Consultation January 24, 2021 Assessment & Plan (1) Abdominal pain: 20yo virginal female with c/o R lower back and hip pain, nausea/emesis and WBC 30. She is midcycle with concordant pelvic organ appearance on ultrasound (trilaminar endometrium, ovulatory cyst on L ovary, no excessive FF), quant is neg and she has a benign lower abdominal exam except for tenderness at McBurney's; I feel there is low likelihood of PID or [employer] cause of her symptoms and findings. STD testing can be done via urine and is appropriately being done through ER as any history may or may not be honest, though I believe it is truthful in this case. Declined pelvic internal exam which I feel is acceptable given her history and imaging findings; it would likely have been low yield. Though CT scan showed normal appendix, I remain most suspicious of her appendix as the problem given her exam today and the lack of other likely etiologies of this location of pain with high WBC. Urinalysis did not suggest UTI or pyelo. Back pain being musculoskeletal / herniated disk is a possibility but I am not p ersonally able to correlate this with her WBC of 30. Surgical consultation was recommended to Dr. Mitchell this AM immediately after I saw the patient, while I was still in the ER. History of Present Illness Reason for Consultation: Right back / hip pain, WBC 30, Left ovarian cyst Requesting Physician: Austen Mitchell Attending Physician: MD Maegan History of Present Illness Note: Delayed documentation. Patient seen at approximately 11AM in the ER. 20yo G0 virginal female presents to ER with her mother. Her complaint is R back/hip/flank pain, which radiates down R leg to knee level. This had onset acutely last night per the patient's discussion with me in the exam room, though I note the ER documentation mentions some prior pain of up to 6 days' duration and lesser intensity which the patient had mentioned to them. The patient told me that the pain was much worse when she awoke this morning, and got even more intense when she sat on the toilet and performed Valsalva. At that point she suffered intense nausea and had to be helped out of the bathroom by her roommate. She then had emesis several times. She was brought to the ER where her mother joined her. The patient notes she has not had anything to eat today due to lack of appetite. She has not had subjective fever but has also not taken her temperature at any time in this episode. She specifies that the pain got worse whenever she tried laying flat in bed, and was improved when she sat up or lifted her legs, but was never gone. She notes the pain has changed locations, and clarifies that she did not feel it moved "from the bellybutton downward," but rather that it moved "from the whole lower back at first more forwards and into the right hip specifically" over time. She has never been sexually active and never been . There are no urinary symptoms (dysuria, hematuria, frequency) nor bowel function changes. Her menses have been regular. Allergies Allergy/AdvReac Type Severity Reaction Status Date / Time No Known Drug Allergies Allergy Uncoded 02/14/19 08:13 Home Medications Medication Instructions Recorded Confirmed Type cetirizine 10 mg tablet 10 mg PO DAILY tab 12/03/18 01/24/21 History fluticasone propionate 50 1 spray INTRANASAL DAILY gm 12/03/18 01/24/21 History mcg/actuation nasal spray,suspension melatonin 5 mg capsule 5 mg PO DAILY 02/19/20 01/24/21 History ibuprofen 600 mg tablet 600 mg PO Q6H PRN 01/24/21 01/24/21 History multivitamin 1 tab PO DAILY 01/24/21 01/24/21 History Patient History Medical History Menstrual migraine No pertinent past medical history Surgical History S/P tonsillectomy and adenoidectomy S/P wisdom tooth extraction Family History Grandmother (Maternal) Breast cancer Father Nephrolithiasis Grandfather (Paternal) Nephrolithiasis Denies family history of Ovarian cancer Colorectal cancer Uterine cancer Social History Smoking Status: Never smoker Hx Alcohol Use: No Hx Substance Use: No Preferred Language: B[place] Feels Safe at Home: Yes Physical Exam Constitutional: WD/WN, vitals as above Sitting semi-vail's. Eyes: PERRL, conjunctivae normal, anicteric sclerae ENMT: Ears: no hearing impairment Mask in place, limits facial exam. Eyes normal movement, conjugate gaze. Neck: trachea midline, no thyromegaly Respiratory: normal respiratory effort and able to speak in complete sentences; no respiratory distress, does not use accessory muscles and no cough Cardiovascular: Rate/Rhythm: regular rate and regular rhythm Extremities: no calf tenderness, no pedal edema and no edema Gastrointestinal (Abdomen): Inspection/Auscultation: abdomen normal to inspection; abdomen not distended and no abdominal surgical scar Percussion/Palpation: abdomen soft Patient is tender to palpation most notably at McBurney's point, with reduction in tenderness when R leg placed in flexion/elevation. She is more tender with pressure inwards, and denies rebound being worse. She has no distension and no fluid wave. There is no tympany. There is also no central lower abdominal or LLQ tenderness. No upper abdominal tenderness, no HSM. She has no change in her leg pain with the manipulations required to place her R leg into the flexed/elevated position, and also does not complain of change in her pain with raising and lowering of the head of bed. She has normal sensation and 5/5 proximal strength in RLE. Distal formal strength evaluation not performed. Musculoskeletal: no cyanosis or clubbing, extremities motor strength 5/5 Skin: no rashes, warm and dry Neurologic: normal touch/pain/proprioception Psychiatric: A+Ox3, euthymic affect Genitourinary: Patient and mother counseled on pelvic exam and recommendation for STD testing as would pertain to discovering pelvic infection. Given the patient has never been sexually active, and the pelvic ultrasound findings did not suggest a cause for her pain or her 30 WBC, they decline pelvic exam at this time. Suprapubic abdominal palpation did not suggest tenderness of the bladder or uterus. Urinalysis was negative for UTI. Urine-based GC/CT testing remains possible and can be done via ER. Lymphatic: no inguinal lymphadenopathy Results & Data ([facility]) Vital Signs (Past 12 Hours) Vital Signs Temp Pulse Resp BP Pulse Ox 01/24/21 06:46 99 01/24/21 06:38 98.2 F 110 H 18 103/53 L 99 Laboratory Results Pending Orders 01/24/21 06:46 Supervisor Statement Clerks [RC] ONCE Pulse Oximetry [RC] ONCE NPO 01/24/21 08:04 Chlam and GC RNA [REF] Urgent 01/24/21 09:16 US transvaginal Stat 01/24/21 09:18 ED GAVIN Blood Culture Assesment [RC] ONCE Piperacill/Tazobac Consult [Consult] 1 ea N/A UD PRN 01/24/21 09:21 Provide COVID-19 Patient Instructions [RC] ONCE 01/24/21 10:24 Consult Gynecology Stat 01/24/21 10:25 Blood Culture Urgent 01/24/21 11:09 Consult General Surgery Stat ED Decision to Admit Stat 01/24/21 12:52 LORazepam [Ativan] 0.5 mg in 1 ml IV UD 01/24/21 12:53 Transfer Order Routine 01/24/21 12:54 Code Status Routine 01/24/21 12:56 Admit as Inpatient [ADMIT] ORDER 01/24/21 17:00 Piperacillin/Tazobactam [Zosyn] 3.375 gm Dextrose 5% [D5] 100 ml IV Q8H Laboratory Results - last 24 hr 01/24/21 01/24/21 01/24/21 06:46 07:23 07:23 WBC 30.63 H* RBC 4.19 L Hgb 13.4 Hct 38.4 MCV 91.6 MCH 32.0 MCHC 34.9 RDW Std Deviation 42.4 RDW Coeff of Татьяна 12.6 Plt Count 225 MPV 11.2 H Immature Gran % (Auto) 0.3 Neut % (Auto) 91.9 Lymph % (Auto) 2.6 [place] % (Auto) 4.4 Eos % (Auto) 0.7 Baso % (Auto) 0.1 Neut # (Auto) 28.14 H Lymph # (Auto) 0.80 L [place] # (Auto) 1.35 H Eos # (Auto) 0.22 Baso # (Auto) 0.03 Immature Gran # (Auto) 0.09 H Sodium 138 Potassium 4.0 Chloride 106 Carbon Dioxide 26 Anion Gap 6.0 BUN 15 Creatinine 0.80 Est Cr Clr Drug Dosing 126.4 Est GFR ( Amer) 122.2 Est GFR (Non-Af Amer) 105.4 BUN/Creatinine Ratio 18.7 Glucose 106 H Lactate Calcium 9.4 Total Bilirubin 1.0 AST 15 ALT 35 Alkaline Phosphatase 89 Total Protein 7.4 Albumin 3.5 Globulin 3.9 Albumin/Globulin Ratio 0.9 Lipase 70 L HCG, Quant Urine Color Urine Appearance Urine pH Ur Specific Gilbert Urine Protein Urine Glucose (UA) Urine Ketones Urine Blood Urine Nitrite Urine Bilirubin Urine Urobilinogen Ur Leukocyte Esterase POC Ur Test NEG C.trachomatis RNA SARS-CoV-2 (PCR) N.gonorrhoeae RNA 01/24/21 01/24/21 01/24/21 07:23 08:04 08:04 WBC RBC Hgb Hct MCV MCH MCHC RDW Std Deviation RDW Coeff of Татьяна Plt Count MPV Immature Gran % (Auto) Neut % (Auto) Lymph % (Auto) [place] % (Auto) Eos % (Auto) Baso % (Auto) Neut # (Auto) Lymph # (Auto) [place] # (Auto) Eos # (Auto) Baso # (Auto) Immature Gran # (Auto) Sodium Potassium Chloride Carbon Dioxide Anion Gap BUN Creatinine Est Cr Clr Drug Dosing Est GFR ( Amer) Est GFR (Non-Af Amer) BUN/Creatinine Ratio Glucose Lactate Calcium Total Bilirubin AST ALT Alkaline Phosphatase Total Protein Albumin Globulin Albumin/Globulin Ratio Lipase HCG, Quant < 1 Urine Color Yellow Urine Appearance Clear Urine pH 5.5 Ur Specific Gilbert 1.023 Urine Protein Negative Urine Glucose (UA) Negative Urine Ketones Negative Urine Blood Negative Urine Nitrite Negative Urine Bilirubin Negative Urine Urobilinogen Negative Ur Leukocyte Esterase Negative POC Ur Test C.trachomatis RNA Pending SARS-CoV-2 (PCR) N.gonorrhoeae RNA Pending 01/24/21 01/24/21 10:25 12:12 WBC RBC Hgb Hct MCV MCH MCHC RDW Std Deviation RDW Coeff of Татьяна Plt Count MPV Immature Gran % (Auto) Neut % (Auto) Lymph % (Auto) [place] % (Auto) Eos % (Auto) Baso % (Auto) Neut # (Auto) Lymph # (Auto) [place] # (Auto) Eos # (Auto) Baso # (Auto) Immature Gran # (Auto) Sodium Potassium Chloride Carbon Dioxide Anion Gap BUN Creatinine Est Cr Clr Drug Dosing Est GFR ( Amer) Est GFR (Non-Af Amer) BUN/Creatinine Ratio Glucose Lactate 1.5 Calcium Total Bilirubin AST ALT Alkaline Phosphatase Total Protein Albumin Globulin Albumin/Globulin Ratio Lipase HCG, Quant Urine Color Urine Appearance Urine pH Ur Specific Gilbert Urine Protein Urine Glucose (UA) Urine Ketones Urine Blood Urine Nitrite Urine Bilirubin Urine Urobilinogen Ur Leukocyte Esterase POC Ur Test C.trachomatis RNA SARS-CoV-2 (PCR) NEGATIVE N.gonorrhoeae RNA Pelvic/Abd CT and Pelvic Ultrasound both reviewed by this MD. Images of Pelvic US all reviewed, also, including prior to Radiology Read. Images are consistent with trilaminar mid-cycle endometrium and L ovary dominant follicle 1.8cm, normal R ovary, trace to small (physiologic) FF. Appendix notably read as normal on CT. (1) Abdominal pain Abdominal location: unspecified location Qualified Code(s): R10.9 - Unspecified abdominal pain
--- NOTE | 2021-01-24 13:56 | Surgery Consultation ---
Date of Consultation January 24, 2021 Assessment & Plan (1) Abdominal pain: Unlikely to be appendicitis. Normal appendix on CT. Symptoms and exam not typical for appendicitis. Will continue to follow. Supervising Physician Co-Signing Physician Notes I personally saw and examined the patient with Cristian Rueda PA-C and agree with the assessment and plan 20-year-old female with leukocytosis of unknown etiology CT images and results reviewed she has no inflammation in the right lower quadrant around the cecum and her appendix is filled with air and appears normal. There is no evidence for acute appendicitis. Her blood cultures are pending. Would recommend admission to the medical team and continued work-up for the etiology of her leukocytosis. Would repeat her labs in the morning. We will follow along. History of Present Illness History of Present Illness 20 y/o female with back pain/right flank radiating to right thigh began after a work out about 6 days ago. She had some RLQ abdominal pain, N/V this morning and came to the ED. Also had some diarrhea. No fevers or chills. No respiratory symptoms. LMP 2 weeks ago. Allergies Allergy/AdvReac Type Severity Reaction Status Date / Time No Known Drug Allergies Allergy Uncoded 02/14/19 08:13 Home Medications Medication Instructions Recorded Confirmed Type cetirizine 10 mg tablet 10 mg PO DAILY tab 12/03/18 01/24/21 History fluticasone propionate 50 1 spray INTRANASAL DAILY gm 12/03/18 01/24/21 History mcg/actuation nasal spray,suspension melatonin 5 mg capsule 5 mg PO DAILY 02/19/20 01/24/21 History ibuprofen 600 mg tablet 600 mg PO Q6H PRN 01/24/21 01/24/21 History multivitamin 1 tab PO DAILY 01/24/21 01/24/21 History Patient History Medical History Menstrual migraine No pertinent past medical history Surgical History S/P tonsillectomy and adenoidectomy S/P wisdom tooth extraction Family History Grandmother (Maternal) Breast cancer Father Nephrolithiasis Grandfather (Paternal) Nephrolithiasis Denies family history of Ovarian cancer Colorectal cancer Uterine cancer Social History Smoking Status: Never smoker Hx Alcohol Use: No Hx Substance Use: No Preferred Language: Bengali Feels Safe at Home: Yes Review of Systems Constitutional: no fever, no chills, no malaise and no weakness Gastrointestinal: + abdominal pain, + nausea, + vomiting and + diarrhea/loose stools Physical Exam Constitutional: WD/WN, vitals as above Respiratory: normal respiratory effort, lungs clear to auscultation Cardiovascular: RRR, no murmur, no edema Gastrointestinal (Abdomen): Inspection/Auscultation: abdomen normal to inspection Percussion/Palpation: + abdomen tender (R right flank>RLQ and nonlocalizing), + guarding (right flank) and abdomen soft Results & Data ([facility]) Vital Signs (Past 12 Hours) Vital Signs Temp Pulse Resp BP Pulse Ox 01/24/21 06:46 99 01/24/21 06:38 36.8 C 110 H 18 103/53 L 99 PG Care Time/CCT Total # of Minutes Spent Total Time Spent with Patient: Total time spent is greater than 50% in coordination of care (as documented) at patient's floor/unit and/or counseling patient: Coding Level of Care Code 56305 Inpt Consult Level 3 Diagnoses Abdominal pain R10.9 Abdominal location: unspecified location (1) Abdominal pain Abdominal location: unspecified location Qualified Code(s): R10.9 - Unspecified abdominal pain
--- NOTE | 2021-01-24 14:19 | Magnetic Resonance Report ---
MR lumbar spine wo con CLINICAL HISTORY: Low back pain with right lower leg numbness for 3 days.. COMPARISON: None. TECHNIQUE: Multiplanar multisequence images of the Lumbar Spine were performed without contrast. FINDINGS: There is no evidence for vertebral body fracture. The heights of the vertebral bodies are maintained. The vertebral bodies are in anatomic alignment. Homogeneous marrow signal is seen without evidence f or marrow edema or marrow replacement. T12-L1: The disc space height is maintained. There are no focal disc protrusions or extrusions ident ified. The thecal sac and epidural fat are maintained. The neural foramen are patent bilaterally. Th ere is no evidence for nerve root encroachment. The facet joints are within normal limits. L1-2: The disc space height is maintained. There are no focal disc protrusions or extrusions identi fied. The thecal sac and epidural fat are maintained. The neural foramen are patent bilaterally. The re is no evidence for nerve root encroachment. The facet joints are within normal limits. L2-3: The disc space height is maintained. There are no focal disc protrusions or extrusions identi fied. The thecal sac and epidural fat are maintained. The neural foramen are patent bilaterally. The re is no evidence for nerve root encroachment. The facet joints are within normal limits. L3-4: There is mild disc space narrowing and disc desiccation with an approximately 4 mm central to slightly left paracentral disc protrusion/herniation present. This encroaches upon the thecal sac c entrally and anteriorly with slight inferior migration of the disc fragment. The neural foramen are p atent bilaterally. There is no evidence for nerve root encroachment. The facet joints are within norm al limits. L4-5: There is mild to moderate disc space narrowing and disc desiccation with an approximately 4 m m left paracentral disc protrusion/herniation present. This produces minimal encroachment upon the t hecal sac anteriorly to the left. The neural foramen are patent bilaterally. There is no evidence for nerve root encroachment. The facet joints are within normal limits. L5-S1: There is moderate disc space narrowing and disc desiccation with an approximately 7 mm centr al to slightly left paracentral disc protrusion/herniation present. There is inferior migration of d isc fragment by approximately 4 mm. Due to the increase amount of epidural fat anterior to the thecal sac at this level, no encroachment upon the thecal sac is seen. The neural foramen are patent bilate rally. There is no evidence for nerve root encroachment. The facet joints are within normal limits. IMPRESSION: 1. Small central to slightly left paracentral disc protrusion/herniation at L3-4 as described above. 2. Small left paracentral disc protrusion/herniation at L4-5 as described above. 3. Larger central to left paracentral disc protrusion at L5-S1. However, due to the increase amount o f epidural fat anterior to the thecal sac at this level, no encroachment upon the thecal sac or nerve roots is seen. ACT 112: Negative or not required by law. Electronically signed by: Oren Fraser M.D. 01/24/2021 2:18 PM
[2021-01-24] MEDS: PIPERACILLIN/TAZOBACTAM 3.375 GM in DEXTROSE 5% 100 ML IV SCH ×2 (16:01→18:05)
[2021-01-24] MEDS ORDERED: ONDANSETRON INJ 2 MG/ML 2 ML VIAL IV ONE (19:23)
[2021-01-24] MEDS ORDERED: KETOROLAC TROMETHAMINE 15 MG/ML VIAL IV PRN (19:25)
[2021-01-24] MEDS ORDERED: ONDANSETRON INJ 2 MG/ML 2 ML VIAL IV PRN (19:25)
[2021-01-24] MEDS: SACCHAROMYCES BOULARDII 250 MG CAP PO SCH (20:50)
[2021-01-24] MEDS ORDERED: MELATONIN 3 MG TAB PO SCH (21:00)
[2021-01-25 07:14] LABS: Albumin Level 3.2 gm/dl (3.4-5.0); BUN Creatinine Ratio 19.1 (10-20); Calcium 9.3 mg/dl (8.5-10.1); Est GFR (African American) 134.2 ml/min; Est GFR (Non-African American) 115.8 ml/min; Potassium 3.7 mmol/L (3.5-5.1)
[2021-01-25 07:17] LABS: Albumin Globulin Ratio 0.8 (0.9-2); Bilirubin,Total 0.6 mg/dl (0.2-1); Globulin 3.8 gm/dl (2.5-4.0)
[2021-01-25] MEDS: SACCHAROMYCES BOULARDII 250 MG CAP PO SCH (08:17)
--- NOTE | 2021-01-25 08:22 | Surgery Progress Note ---
Date of Service January 25, 2021 Assessment & Plan (1) Abdominal pain: Plan: labs pending low suspicion for appendicitis Admission and Anticipated Discharge Date Admission Date: January 24, 2021 Supervising Physician Co-Signing Physician Notes I personally saw and examined the patient with Cristian Rueda PA-C and agree with the assessment and plan 20-year-old female with leukocytosis of unknown etiology Her white blood cell count is decreasing without antibiotics She is tolerating a diet without issue She is stable for discharge home from a surgical standpoint She should follow-up with her family doctor for further work-up of her elevated white blood cell count Subjective some improvment in pain after two doses Toradol, no fevers or chills, tolerated diet Physical Exam Gastrointestinal (Abdomen): Inspection/Auscultation: abdomen normal to inspection Percussion/Palpation: + abdomen tender (less in RLQ, same right f lank) and abdomen soft Results & Data ([facility]) Vital Signs (Past 12 Hours) Vital Signs Temp Pulse Resp BP Pulse Ox 01/25/21 07:32 36.9 C 77 18 105/65 96 01/24/21 23:00 37.2 C 75 16 107/66 94 01/24/21 22:33 76 16 116/37 L 96 PG Care Time/CCT Total # of Minutes Spent Total Time Spent with Patient: Total time spent is greater than 50% in coordination of care (as documented) at patient's floor/unit and/or counseling patient: Coding Level of Care Code 88155 Subseq Hosp Care Lvl 1 Diagnoses Abdominal pain R10.9 Abdominal location: unspecified location (1) Abdominal pain Abdominal location: unspecified location Qualified Code(s): R10.9 - Unspecified abdominal pain
[2021-01-25] MEDS ORDERED: FLUTICASONE PROPIONATE NA SPR 16 GM BTL NAE SCH (09:00)
[2021-01-25] MEDS ORDERED: MULTIVITAMIN TAB PO SCH (09:00)
[2021-01-25] MEDS ORDERED: CETIRIZINE HCL 10 MG TABLET PO SCH (09:00)
[2021-01-25 09:58] LABS: Hematocrit (blood only) 36.4 % (37-47); Hemoglobin 12.5 g/dL (12.0-16.0); Mean Corpuscular Hemoglobin 31.7 pg (25-34); Mean Corpuscular Hgb Conc 34.3 g/dL (32-36); Mean Corpuscular Volume 92.4 fL (80-100); Mean Platelet Volume 11.6 fL (7.4-10.4); Platelet Count 166 K/uL (130-400); RDW Coefficient of Variation 12.8 % (11.5-14.5); RDW Standard Deviation 43.6 fL (36.4-46.3); Red Blood Count 3.94 M/uL (4.2-5.4); White Blood Count 17.61 K/uL (4.8-10.8)
[2021-01-25 10:06] LABS: Basophils # (auto) 0.02 K/uL (0-0.2); Basophils % (auto) 0.1 %; Eosinophils % (auto) 0.6 %; Immature Granulocytes # (auto) 0.02 K/uL (0.00-0.02); Immature Granulocytes % (auto) 0.1 %; Lymphocytes # (auto) 2.55 K/uL (1.2-3.4); Lymphocytes % (auto) 14.5 %; Monocytes # (auto) 0.95 K/uL (0.11-0.59); Monocytes % (auto) 5.4 %; Neutrophils # (auto) 13.97 K/uL (1.4-6.5); Neutrophils % (auto) 79.3 %
[2021-01-25] MEDS ORDERED: predniSONE 50 MG TAB PO ONE (10:30)
--- NOTE | 2021-01-25 11:26 | Consultation ---
Date of Consultation January 25, 2021 Assessment & Plan (1) SIRS (systemic inflammatory response syndrome): MRI and clinical findings have been reviewed with Dr. Gardner. Current pain does not seem to be radicular. MRI findings are modest and do not match her current pain pattern. I feel her right lateral hip pain is actually greater trochanter bursitis. Would consider injection if it does not improve. This can certainly be done as an outpatient. Her back pain appears to be muscular. Would consider physical therapy. No urgent surgical indications. Activity as tolerated. Continue current pain management regimen. Orthopedically stable for discharge. Thank you History of Present Illness Reason for Consultation: Acute lumbar radiculopathy Attending Physician: Pedro Workman MD History of Present Illness Is a pleasant 20-year-old female that we're asked to see in consultation regarding her lumbar spine. 6 days ago she was working out and occasionally will have lower back pain for 2 or 3 days and then it resolves on its own. She states the pain did not resolve and was worsening. She presented to the emergency room yesterday. She states pain was so severe it actually caused her to be nauseous with subsequent vomiting. Pain is a band across the lumbar spine over the right lateral hip. She reports right flank pain and lower abdominal pain. Gynecology and general surgery have also been consulted. She has her lower back pain when she is seated or lying down. There is no radicular component to it. Ambulates independently. Denies bowel or bladder changes or perineum numbness. Allergies Allergy/AdvReac Type Severity Reaction Status Date / Time No Known Allergies Allergy Verified 01/24/21 19:26 Home Medications Medication Instructions Recorded Confirmed Type cetirizine 10 mg tablet 10 mg PO DAILY tab 12/03/18 01/24/21 History fluticasone propionate 50 1 spray INTRANASAL DAILY gm 12/03/18 01/24/21 History mcg/actuation nasal spray,suspension melatonin 5 mg capsule 5 mg PO DAILY 02/19/20 01/24/21 History ibuprofen 600 mg tablet 600 mg PO Q6H PRN 01/24/21 01/24/21 History multivitamin 1 tab PO DAILY 01/24/21 01/24/21 History Patient History Medical History Menstrual migraine No pertinent past medical history Surgical History S/P tonsillectomy and adenoidectomy S/P wisdom tooth extraction Family History Grandmother (Maternal) Breast cancer Father Nephrolithiasis Grandfather (Paternal) Nephrolithiasis Denies family history of Ovarian cancer Colorectal cancer Uterine cancer Social History Smoking Status: Never smoker Second Hand Exposure: No; Hx Alcohol Use: No Hx Substance Use: No Preferred Language: [place] Communication Ability: Effective Piping Design Specialist Required: No Beliefs That Will Affect Care: None Current Living Situation: Other Current Living Situation Comment: college Feels Safe at Home: No Is there a partner from a previous relationship who is making you feel unsafe now?: No Assistive Devices: None Review of Systems Review of Systems: All systems reviewed & are unremarkable except as noted in HPI & below Physical Exam Physical Exam: Alert and oriented x3 no acute distress or ill appearing She moves out of bed with ease unassisted She is tender over bilateral PSIS regions. Exquisitely tender to patient over the right greater trochanter bursa region strength is 5 5 bilateral EHL, dorsiflexion, plantarflexion, quadriceps, hamstrings, hip flexors, hip abductor's and hip adductor's Negative logrolling bilaterally Negative tension signs bilaterally No evidence of ankle clonus Constitutional: healthy appearing Eyes: normal visual vang by confrontation ENMT: external ear and nose normal, oropharynx normal Neck: normal visual inspection Respiratory: normal respiratory effort Cardiovascular: Extremities: normal capillary refill Gastrointestinal (Abdomen): tender over right flank Musculoskeletal: no cyanosis or clubbing, extremities motor strength 5/5 Skin: no rashes, warm and dry Neurologic: moves all extremities Psychiatric: A+Ox3, euthymic affect Results & Data ([facility]) Vital Signs (Past 12 Hours) Vital Signs Temp Pulse Resp BP Pulse Ox 01/25/21 07:32 36.9 C 77 18 105/65 96 Diagnostic Findings [facility], [place] [phone] Magnetic Resonance Report Patient:ELADIA VEGA Admit Date:01/24/21 MR#:[id number] Address1:[address] [place] [address] #1 Acct ID:[id number] Address2: Date:2000 [facility] Zip:[place] [address] Age:20 Location:ED Sex:F Room/Bed: Att Phy: Diagnosis:BACK PAIN, VOMITING Emelia Phy:MarjanTyra dennis DO Service Date:01/24/21 Fam Phy: Interpreting [facility]: Ordering Phy:Kizzy Bryan MD cc: ~ MR lumbar spine wo con CLINICAL HISTORY: Low back pain with right lower leg numbness for 3 days.. COMPARISON: None. TECHNIQUE: Multiplanar multisequence images of the Lumbar Spine were performed without contrast. FINDINGS: There is no evidence for vertebral body fracture. The heights of the vertebral bodies are maintained. The vertebral bodies are in anatomic alignment. Homogeneous marrow signal is seen without evidence for marrow edema or marrow replacement. T12-L1: The disc space height is maintained. There are no focal disc protrusion s or extrusions identified. The thecal sac and epidural fat are maintained. The neural foramen are patent bilaterally. There is no evidence for nerve root encroachment. The facet joints are within normal limits. L1-2: The disc space height is maintained. There are no focal disc protrusions or extrusions identified. The thecal sac and epidural fat are maintained. The neural foramen are patent bilaterally. There is no evidence for nerve root encroachment. The facet joints are within normal limits. L2-3: The disc space height is maintained. There are no focal disc protrusions or extrusions identified. The thecal sac and epidural fat are maintained. The neural foramen are patent bilaterally. There is no evidence for nerve root encroachment. The facet joints are within normal limits. L3-4: There is mild disc space narrowing and disc desiccation with an approximately 4 mm central to slightly left paracentral disc protrusion/herniation present. This encroaches upon the thecal sac centrally and anteriorly with slight inferior migration of the disc fragment. The neural foramen are patent bilaterally. There is no evidence for nerve root encroachment. The facet joints are within normal limits. L4-5: There is mild to moderate disc space narrowing and disc desiccation with an approximately 4 mm left paracentral disc protrusion/herniation present. This produces minimal encroachment upon the thecal sac anteriorly to the left. The neural foramen are patent bilaterally. There is no evidence for nerve root encroachment. The facet joints are within normal limits. L5-S1: There is moderate disc space narrowing and disc desiccation with an approximately 7 mm central to slightly left paracentral disc protrusion/herniation present. There is inferior migration of disc fragment by approximately 4 mm. Due to the increase amount of epidural fat anterior to the thecal sac at this level, no encroachment upon the thecal sac is seen. The neural foramen are patent bilaterally. There is no evidence for nerve root encroachment. The facet joints are within normal limits. IMPRESSION: 1. Small central to slightly left paracentral disc protrusion/herniation at L3-4 as described above. 2. Small left paracentral disc protrusion/herniation at L4-5 as described above. 3. Larger central to left paracentral disc protrusion at L5-S1. However, due to the increase amount of epidural fat anterior to the thecal sac at this level, no encroachment upon the thecal sac or nerve roots is seen. ACT 112: Negative or not required by law. Electronically signed by: Oren Fraser M.D. 01/24/2021 2:18 PM Dictated:01/24/21 1410 Transcribed: 01/24/21 141
--- NOTE | 2021-01-25 13:44 | Discharge Summary ---
Date of Service January 25, 2021 Admission HPI Per Admitting Provider This patient is a 20-year-old healthy female who presents to the ER with right lower back pain x6 days and then woke up this morning with development of pain radiating around from the right flank to the right lower quadrant and down the right lower extremity. She reports she did a hard abdominal workout about a week ago and the pain in the right lower back started after that. It was worse with certain movements and twisting and certainly seemed musculoskeletal to her. She also had abdominal pains only with sneezing coughing or using her abdominal muscles. She woke up this morning, however, and noted fairly severe pain radiating around as noted above into the abdomen and down the right lower extremity that was worse when she tried to get up and walk around. She felt very lightheaded like she was about to pass out and then started having nausea and vomiting. Her roommate had to put her in her desk chair on wheels and wheeled her to the door to get her to the car to come to the hospital. The pain radiates through her right buttock down the right medial thigh to the right medial calf and feels like a charley horse in nature. She does not necessarily feel any numbness in that area. She also had some tenderness in the right lower quadrant and initially there was concerns for appendicitis as her WBC count was quite high at 30 on arrival. She denies any fevers or chills, no recent illness. After being treated in the ER with IV Toradol, 1 L of normal saline, 1 dose of Zosyn, and 1 dose of Solu-Medrol 60 mg, she is definitely feeling better and her nausea is gone. In fact, she is feeling hungry. She was afebrile in the ER, tachycardic, with a normal blood pressure. Other than the elevated WBC count, her lactate was normal, CMP was normal, the rest of her CBC was normal, lipase is normal, and urinalysis completely normal. Covid test was pending at the time of admission. Gonorrhea and Chlamydia urine test were collected and pending also, however the patient is not sexually active . hCG test was negative. 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 A CT of the abdomen/pelvis with IV contrast was normal except for ovarian cyst/follicles and a small to moderate amount of free fluid in the cul-de-sac most likely physiologic. A CT of the lumbar spine does show mild central canal stenosis at L3-L4 due to central disc herniation with mild inferior subligamentous migration and suspected disc bulge at L4-L5 with small superimposed central disc protrusion. A venous Doppler of the right lower extremity was negative for DVT She will be admitted for right lower back pain with right lower quadrant abdominal pain radiating down the right lower extremity, SIRS criteria. Haskins ignacio, it seems most likely this is an acute lumbar radiculopathy. Admission Exam Per Admitting Provider Constitutional: WD/WN, vitals as above Eyes: PERRL, conjunctivae normal, anicteric sclerae ENMT: external ear and nose normal, oropharynx normal Neck: trachea midline, no thyromegaly Respiratory: normal respiratory effort, lungs clear to auscultation Cardiovascular: RRR, no murmur, no edema Chest (Breasts): Chest: normal inspection of chest Gastrointestinal (Abdomen): Inspection/Auscultation: abdomen normal to inspection and normal bowel sounds; abdomen not distended Percussion/Palpation: + abdomen tender (Very minimal without guarding or rebound in the right lower quadrant) and abdomen soft; no guarding, abdomen not rigid, no hepatosplenomegaly, no hernia, no abdominal mass and no ascites No pain with heel tap Musculoskeletal: Extremities: extremities normal to inspection; no cyanosis and no clubbing Positive tenderness palpation over right lumbar paraspinous muscles, no mass palpated, no ecchymosis Skin: no rashes, warm and dry Neurologic: deep tendon reflexes 2+ bilaterally (Brisk reflexes in patellar and Achilles bilaterally), moves all extremities and awake; no focal motor deficits (Except 4+/5 strength in right hip flexion and knee flexion and extension) Motor/Sensory: no sensory deficit (Intact to light touch throughout lower extremities bilaterally) Positive straight leg raise on the right, negative on the left Psychiatric: A+Ox3, euthymic affect Lymphatic: no lymphedema Principal Diagnosis SIRS -- resolving HNP at multiple levels R hip pain -- suspected bursitis Discharge Exam Vital Signs Temp Pulse Pulse Resp BP BP Pulse Ox 01/25/21 07:32 36.9 C 77 18 105/65 96 01/24/21 23:00 37.2 C 75 16 107/66 94 01/24/21 22:33 76 16 116/37 L 96 01/24/21 17:45 36.9 C 72 20 108/64 99 01/24/21 16:49 37.0 C 64 20 98/60 L 99 01/24/21 16:47 37.0 C 68 20 99/60 L 99 Intake and Output 01/24/21 01/25/21 01/25/21 22:59 06:59 14:59 Intake Total 80.16 / 1200.16 0 / 1200.16 Balance 80.16 / 1200.16 0 / 1200.16 Intake: IV 80.16 / 1200.16 0 / 1200.16 Piperacillin/Tazobactam 3.375 80.16 / 80.16 0 / 80.16 gm In Dextrose 5% 100 ml @ 28. 75 mls/hr IV Q8H NOAH Rx#: [id number] Other: # Unmeasured Voids 1 Weight 84.1 kg 84.5 kg Weight Measurement Method Built in [facility] GENERAL: 20 yo WD/WN WF. NAD. LUNGS: Clear to auscultation bilaterally. No accessory muscle use. No W/R/R. CARDIOVASCULAR: Regular rate and rhythm. No M/G/R. No JVD. ABDOMEN: Soft, non-tender and non-distended. No palpable masses. Bowel sounds normoactive x 4 quad. EXTREMITIES: No edema. Non-tender. Peripheral pulses +2/4. NEUROLOGIC: A&O x3. No focal neurological deficits. CN II-XII grossly intact. M/S: Negative straight leg raise and cross straight leg raise. Tenderness to palpation over lumbar spinous processes and paravertebral muscles. PSYCHIATRIC: Cooperative. Appropriate mood and affect. SKIN: Warm, dry, intact. No rashes or lesions. Discharge Data Allergies Allergy/AdvReac Type Severity Reaction Status Date / Time No Known Allergies Allergy Verified 01/24/21 19:26 Consultations 1. Consult Gyne d/t abd pain and ovarian cyst on ultrasound -- Seen by Dr. Issa, please see her a/p below Assessment & Plan (1) Abdominal pain: 20yo virginal female with c/o R lower back and hip pain, nausea/emesis and WBC 30. She is midcycle with concordant pelvic organ appearance on ultrasound (trilaminar endometrium, ovulatory cyst on L ovary, no excessive FF), quant is neg and she has a benign lower abdominal exam except for tenderness at McBurney's; I feel there is low likelihood of PID or CONCR[employer]ING MACHINE OPERATOR cause of her symptoms and findings. STD testing can be done via urine and is appropriately being done through ER as any history may or may not be honest, though I believe it is mohsen thful in this case. Declined pelvic internal exam which I feel is acceptable given her history and imaging findings; it would likely have been low yield. Though CT scan showed normal appendix, I remain most suspicious of her appendix as the problem given her exam today and the lack of other likely etiologies of this location of pain with high WBC. Urinalysis did not suggest UTI or pyelo. Back pain being musculoskeletal / herniated disk is a possibility but I am not personally able to correlate this with her WBC of 30. 2. General surgery consulted d/t concern for acute appendicitis -- seen by Cristian Rueda PA-C, & Dr. Mack, please see his a/p below Assessment & Plan (1) Abdominal pain: Unlikely to be appendicitis. Normal appendix on CT. Symptoms and exam not typical for appendicitis. Will continue to follow. 3. Orthopedic surgery consulted d/t HNP/back pain complaints. Please see Raissa Holley PA-C consult a/p below Assessment & Plan (1) SIRS (systemic inflammatory response syndrome): MRI and clinical findings have been reviewed with Dr. Gardner. Current pain does not seem to be radicular. MRI findings are modest and do not match her current pain pattern. I feel her right lateral hip pain is actually greater trochanter bursitis. Would consider injection if it does not improve. This can certainly be done as an outpatient. Her back pain appears to be muscular. Would consider physical therapy. No urgent surgical indications. Activity as tolerated. Continue current pain management regimen. Orthopedically stable for discharge. Thank you Procedures Performed None Ordered Studies Laboratory Results - last 24 hr 01/24/21 01/25/21 01/25/21 07:23 05:57 05:57 WBC 30.63 17.61 H D RBC 4.19 3.94 L Hgb 13.4 12.5 Hct 38.4 36.4 L MCV 91.6 92.4 MCH 32.0 31.7 MCHC 34.9 34.3 RDW Std Deviation 42.4 43.6 RDW Coeff of Татьяна 12.6 12.8 Plt Count 225 166 MPV 11.6 H Immature Gran % (Auto) 0.1 Neut % (Auto) 79.3 Lymph % (Auto) 14.5 [place] % (Auto) 5.4 Eos % (Auto) 0.6 Baso % (Auto) 0.1 Neut # (Auto) 13.97 H Lymph # (Auto) 2.55 [place] # (Auto) 0.95 H Eos # (Auto) 0.10 Baso # (Auto) 0.02 Immature Gran # (Auto) 0.02 Sodium 139 Potassium 3.7 Chloride 108 H Carbon Dioxide 27 Anion Gap 4.0 BUN 14 Creatinine 0.74 Est Cr Clr Drug Dosing 137.0 Est GFR ( Amer) 134.2 Est GFR (Non-Af Amer) 115.8 BUN/Creatinine Ratio 19.1 Glucose 91 Calcium 9.3 Total Bilirubin 0.6 AST 11 L ALT 29 Alkaline Phosphatase 82 Total Creatine Kinase 53 Total Protein 7.0 Albumin 3.2 L Globulin 3.8 Albumin/Globulin Ratio 0.8 L Lumbar Spine X-Ray 01/24/21 07:05 XR lumbar spine 2-3V CLINICAL HISTORY: lower back pain COMPARISON STUDY: Lumbar spine CT January 24, 2021 at 8:29 AM. FINDINGS: Alignment of the lumbar spine is anatomic. There is mild disc space narrowing at L5-S1. No fractures lesion within the lumbar spine is noted. There is contrast within the collecting systems and bladder from recent contrast- enhanced CT. IMPRESSION: 1. No acute lumbar spine fracture or subluxation. 2. Mild disc space narrowing at L5-S1. ACT 112: Negative or not required by law. Electronically signed by: Hernan Ambriz M.D. 01/24/2021 9:46 AM Abdomen/Pelvis CT 01/24/21 08:17 CT abd pelvis IV con only CLINICAL HISTORY: Lower back pain COMPARISON STUDY: No previous studies for comparison. CT DOSE: 784.60 mGycm TECHNIQUE: Standard CT of the Abdomen and Pelvis was performed with IV contrast. A dose lowering technique was utilized adhering to the principles of ALARA. Contrast Volume: Optiray 320, 95 ml. The patient did not receive oral contrast. FINDINGS: Lung base: The lung bases are clear. Abdominal cavity: There is no evidence for abdominal mass, adenopathy or ascites. Liver: There is homogeneous attenuation of the liver parenchyma. There is no evidence for enhancing mass lesion. Spleen: There is homogeneous attenuation of the splenic parenchyma. There is no enhancing mass lesion. Pancreas: There is homogeneous attenuation of the pancreatic parenchyma. There is no evidence for mass lesion or peripancreatic fluid collection. Gall Bladder: The gallbladder is well distended with no evidence for intraluminal calculi, wall thickening or pericholecystic edema. Adrenal glands: The adrenal glands are normal in size and attenuation. There is no evidence for enhancing mass lesion. Kidneys: There is homogeneous attenuation of the renal parenchyma bilaterally. There is no evidence for renal calculus or hydronephrosis. There is no evidence for enhancing mass. Bowel: The bowel loops are normally placed within the abdomen and pelvis without evidence for dilatation or obstruction. There is no evidence for mass lesion. There are no inflammatory changes present. There is no evidence for free air. There is a normal appendix in the right lower quadrant. Bladder: The bladder is within normal limits with no evidence for focal mass, calculus or diverticulum. : There is prominence of the endometrium. There is a 2.5 cm left ovarian cyst and a 1.6 cm dominant follicle on the right. Small to moderate amount of free fluid is seen within the cul-de-sac which is most likely physiologic. Vasculature: There is no evidence for aneurysmal dilatation of the abdominal aorta. Osseous structures: There is no acute osseous pathology. IMPRESSION: 1. No acute intra-abdominal or pelvic abnormality. 2. Thickening of the endometrium and 2.5 cm left ovarian cyst. Small to moderate amount of free fluid seen within the cul-de-sac which is most likely physiologic from rupture of an ovarian cyst. ACT 112: Negative or not required by law. Electronically signed by: Oren Fraser M.D. 01/24/2021 8:[address] 01/24/21 08:17 CT lumbar spine w con CLINICAL HISTORY: Lower back pain. COMPARISON STUDY: No previous studies for comparison. TECHNIQUE: Axial images of the lumbar spine were obtained following intravenous injection of 95 cc of Optiray 320 IV. Sagittal and coronal reconstructions were viewed. Automated exposure control was utilized for the study. A dose lowering technique was utilized adhering to the principles of ALARA. FINDINGS: Please note that the CT of the abdomen and pelvis will be reported separately. For purposes of numbering on this exam, the L5-S1 disc space is assigned to axial image 193 of 245. Alignment of the lumbar spine is anatomic. Vertebral body heights are maintained. There is no lumbar spine fracture. No suspicious osseous lesion is present. Facet joints are intact. Paravertebral soft tissues are unremarkable. There is mild disc space narrowing at L5-S1. The central canal and neural foramen are suboptimally assessed by CT. L1-L2: The central canal and neural foramen are patent. L2-L3: The central canal and neural foramen are patent. L3-L4: There is a central disc herniation. This may have mild inferior subligamentous migration. This could reflect a central disc extrusion. There is mild narrowing of the central canal. Neural foramen are patent. L4-L5: There is mild disc bulge with possible superimposed small central disc protrusion. Central canal and neural foramen are patent. L5-S1: There is mild disc space narrowing. There is disc bulge with small superimposed central disc osteophyte complex. Central canal and neural foramen are patent. There may be mild narrowing of the bilateral lateral recesses. IMPRESSION: 1. No acute lumbar spine fracture or subluxation. 2. Suboptimal evaluation of the central canal and neural foramen given CT technique. Possible mild central canal stenosis at L3-L4 due to central disc herniation with mild inferior subligamentous migration. 3. Suspected disc bulge at L4-L5 with small superimposed central disc protrusion. 4. Small central disc osteophyte complex at L5-S1. ACT 112: Negative or not required by law. Electronically signed by: Hernan Ambriz M.D. 01/24/2021 8:52 AM Pelvis Ultrasound 01/24/21 09:16 US pelvic complete CLINICAL HISTORY: Right-sided flank and pelvic pain radiating down the right leg. TECHNIQUE: Transabdominal and endovaginal sonogram of the pelvis is performed. COMPARISON: CT of the abdomen and pelvis from 01/24/2021 FINDINGS: Uterus: The uterus is anteverted and normal in size. It measures 6.6 x 3.6 x 5.2 cm. Endometrial stripe: 8 mm with no endometrial fluid collection. Right ovary: The right ovary is normal in size and echogenicity. Anatomic Doppler flow is demonstrated. It measures 2.0 x 1.7 x 1.7 cm. There is no evidence for right adnexal mass or cyst. Left ovary: The left ovary is normal in size and echogenicity. Anatomic Doppler flow was demonstrated. There is a 1.8 x 1.6 cm ovarian cyst. The ovary itself measures approximately 2.0 x 1.6 x 1.5 cm. There is no evidence for left adnexal mass or cyst. Cul de sac: Small amount of free fluid is seen within the cul-de-sac. IMPRESSION: 1. As seen on the CT, there is a small right ovarian cyst measuring 1.8 cm by ultrasound. Small amount of free fluid is seen within the cul-de-sac which is most likely physiologic. ACT 112: Negative or not required by law. Electronically signed by: Oren Fraser M.D. 01/24/2021 10:33 AM Transvaginal US 01/24/21 09:16 US pelvic complete CLINICAL HISTORY: Right-sided flank and pelvic pain radiating down the right leg. TECHNIQUE: Transabdominal and endovaginal sonogram of the pelvis is performed. COMPARISON: CT of the abdomen and pelvis from 01/24/2021 FINDINGS: Uterus: The uterus is anteverted and normal in size. It measures 6.6 x 3.6 x 5.2 cm. Endometrial stripe: 8 mm with no endometrial fluid collection. Right ovary: The right ovary is normal in size and echogenicity. Anatomic Doppler flow is demonstrated. It measures 2.0 x 1.7 x 1.7 cm. There is no evidence for right adnexal mass or cyst. Left ovary: The left ovary is normal in size and echogenicity. Anatomic Doppler flow was demonstrated. There is a 1.8 x 1.6 cm ovarian cyst. The ovary itself measures approximately 2.0 x 1.6 x 1.5 cm. There is no evidence for left adnexal mass or cyst. Cul de sac: Small amount of free fluid is seen within the cul-de-sac. IMPRESSION: 1. As seen on the CT, there is a small right ovarian cyst measuring 1.8 cm by ultrasound. Small amount of free fluid is seen within the cul-de-sac which is most likely physiologic. ACT 112: Negative or not required by law. Electronically signed by: Oren Fraser M.D. 01/24/2021 10:33 AM Venous Doppler Study 01/24/21 09:26 RIGHT LOWER EXTREMITY VENOUS DOPPLER HISTORY: r leg pain COMPARISON STUDY: None. FINDINGS: There is normal compressibility, flow, and augmentation within the right lower extremity deep venous system. IMPRESSION: No DVT within the right lower extremity ACT 112: Negative or not required by law. Electronically signed by: Kirk Jules M.D. 01/24/2021 10:35 AM Lumbar Spine MRI 01/24/21 12:52 MR lumbar spine wo con CLINICAL HISTORY: Low back pain with right lower leg numbness for 3 days.. COMPARISON: None. TECHNIQUE: Multiplanar multisequence images of the Lumbar Spine were performed without contrast. FINDINGS: There is no evidence for vertebral body fracture. The heights of the vertebral bodies are maintained. The vertebral bodies are in anatomic alignment. Homogeneous marrow signal is seen without evidence for marrow edema or marrow replacement. T12-L1: The disc space height is maintained. There are no focal disc protrusions or extrusions identified. The thecal sac and epidural fat are maintained. The neural foramen are patent bilaterally. There is no evidence for nerve root encroachment. The facet joints are within normal limits. L1-2: The disc space height is maintained. There are no focal disc protrusions or extrusions identified. The thecal sac and epidural fat are maintained. The neural foramen are patent bilaterally. There is no evidence for nerve root encroachment. The facet joints are within normal limits. L2-3: The disc space height is maintained. There are no focal disc protrusions or extrusions identified. The thecal sac and epidural fat are maintained. The neural foramen are patent bilaterally. There is no evidence for nerve root encroachment. The facet joints are within normal limits. L3-4: There is mild disc space narrowing and disc desiccation with an approximately 4 mm central to slightly left paracentral disc protrusion/herniation present. This encroaches upon the thecal sac centrally and anteriorly with slight inferior migration of the disc fragment. The neural foramen are patent bilaterally. There is no evidence for nerve root encroachment. The facet joints are within normal limits. L4-5: There is mild to moderate disc space narrowing and disc desiccation with an approximately 4 mm left paracentral disc protrusion/herniation present. This produces minimal encroachment upon the thecal sac anteriorly to the left. The neural foramen are patent bilaterally. There is no evidence for nerve root encroachment. The facet joints are within normal limits. L5-S1: There is moderate disc space narrowing and disc desiccation with an approximately 7 mm central to slightly left paracentral disc protrusion/herniation present. There is inferior migration of disc fragment by approximately 4 mm. Due to the increase amount of epidural fat anterior to the thecal sac at this level, no encroachment upon the thecal sac is seen. The neural foramen are patent bilaterally. There is no evidence for nerve root encroachment. The facet joints are within normal limits. IMPRESSION: 1. Small central to slightly left paracentral disc protrusion/herniation at L3-4 as described above. 2. Small left paracentral disc protrusion/herniation at L4-5 as described above. 3. Larger central to left paracentral disc protrusion at L5-S1. However, due to the increase amount of epidural fat anterior to the thecal sac at this level, no encroachment upon the thecal sac or nerve roots is seen. ACT 112: Negative or not required by law. Electronically signed by: Oren Fraser M.D. 01/24/2021 2:18 PM Hospital Course (1) SIRS (systemic inflammatory response syndrome): Presents with right lower back pain with pain radiating around to the right lower abdomen and down the right thigh to the right medial calf With tachycardia, leukocytosis significant at 30 with neutrophilia, but afebrile, lactate negative, normal blood pressure Presented with nausea/vomiting likely secondary to severe pain No source of infection found on CT abdomen/pelvis, urinalysis is negative, no hydronephrosis or pyelonephritis Pelvic ultrasound without source of infection and seen by gynecology Symptoms are improving with treatment of pain and IV fluids, but was also given 1 dose of IV Zosyn and 1 dose of IV Solu-Medrol -Admit to medical/surgical floor -Blood cultures ordered, results pending, but patient has remained afebrile with normal HR -Surgery consulted by ER physician-awaiting consultation but do not suspect acute abdomen or appendicitis based on imaging and examination. Surgery agreed with this. -MRI of lumbar spine obtained -- note results above. Symptoms do not correlate with findings. -Repeat CBC obtained this morning, still with mild elevation but still decreased from yesterday. Suspect this mild elevation is due to dose of Solu-Medrol gived in ED. -Pain control with IV Toradol -No need for antibiotics at this time is unclear source or even if there is an infection (2) Herniated lumbar intervertebral disc: As above MRI obtained, results above. Symptoms do not correlate with findings. Lorazepam as needed for claustrophobia Treating with IV Toradol Seen by Dr. Gardner's PA-C, note her A/P above. Refer to outpatient PT. Can f/u with ortho as outpatient. Will plan for Prednisone burst for total of 5 days, one dose to be given today prior to discharge. (3) Abdominal pain: I suspect her pain is all musculoskeletal, responds to palpation May be referred from possible R hip bursitis No evidence of acute appe or gyne etiology to explain sx. Seen by both gyne and general surgery in consult. (4) Leukocytosis: As above CBC this AM still slightly elevated; however, suspect this is due to dose of IV Solumedrol Patient is medically stable for discharge. All questions answered. Will provide order for outpatient Total Time Total Time Spent Total Time Spent (In Minutes): >30 minutes Discharge Plan Discharge Items Patient Disposition: Home - Self-Care Reason For Visit: SIRS CRITERIA, ABDOMINAL PAIN Discharge Diagnosis: Back pain R hip and leg pain Elevated white blood cell count, not due to infection Activity: Resume your previous activity Non-emergency contact: Primary Care Provider Call non-emergency contact if: you have any medication questions and your symptoms worsen Follow-up/Referrals: Raissa Holley PA-C [Physician Director Fundraising] - 02/10/21 1:00 pm (Follow up with Dr. Gardner's PA-C. ) Tyra Barragan DO [Primary Care Provider] - Diet: Regular Addtl Attending Provider Instructions: 1. Take Prednisone as instructed, in morning with food. 2. Do NOT take additional NSAIDs including Ibuprofen (Motrin, Advil) or Naproxen (Aleve) 3. May use moist heat for 20 minute intervals to back. 4. Will provide you with an order for PT, you will need to call one close to you to schedule an appointment. 5. Follow up with orthopedics as scheduled. 6. Follow up with PCP within 7-10 days of discharge. Primary care doctor can recheck blood count to ensure it has normalized. Pending Studies at Discharge: No Stand-Alone Forms: My [employer], Smoking Cessation Medications and DC Order Prescriptions: New prednisone 50 mg tablet 50 mg PO DAILY 4 Days Qty: 4 RF: 0 Continued fluticasone propionate 50 mcg/actuation spray,suspension 1 spray intranasal DAILY RF: 0 cetirizine 10 mg tablet 10 mg PO DAILY RF: 0 melatonin 5 mg capsule 5 mg PO DAILY RF: 0 multivitamin Tablet 1 tab PO DAILY RF: 0 Discontinued ibuprofen 600 mg tablet 600 mg PO Q6H PRN (Reason: Pain) RF: 0 Discharge Orders: Discharge Order (Routine); Ordered 01/25/21 Ordered By: Lisset Her Admission Data Admit Date/Time: 01/24/21 12:56 Attending Provider: Pedro Workman Admit Provider: Kizzy Bryan Primary Care Provider: Tyra Barragan Other Providers: Shraddha Issa ; Carlitos Mack ; Kizzy Bryan ; Kojo Gardner Coding Level of Care Code D/C DAY MANAGEMENT >30 MINS Diagnoses SIRS (systemic inflammatory response syndrome) R65.10 Herniated lumbar intervertebral disc M51.26 Abdominal pain R10.9 Abdominal location: unspecified location Leukocytosis D72.829 Leukocytosis type: unspecified
[2021-01-25 17:45] LABS: Chlamydia Trach RNA NOT DETECTED (NOT DETECTED); GC (Neis gonorrhoeae) RNA NOT DETECTED (NOT DETECTED)
== END 2021-01-25 16:27 | disposition home or self-care (01) | DRG 552 ==
LOC: ED 06:35 → SUATTDRO 12:56 → EDINP 12:56 → 3N 16:49